=== PATIENT | male | born 1970 | race Caucasian/White ===

== ENCOUNTER 2024-02-13 08:00 | Outpatient (RCR) | payer MEDICARE, BC, SELFPAY ==
[2024-01-14 08:00] VITALS: BMI 39.8
[2024-01-14 08:29] VITALS: BMI 39.8
[2024-01-21 09:15] VITALS: BMI 39.8
[2024-01-23 11:01] VITALS: BMI 39.8
[2024-01-30 14:47] VITALS: BMI 38.0
[2024-02-04 13:43] VITALS: BMI 38.0
[2024-02-06 14:11] VITALS: BMI 38.0
[2024-02-13 08:04] VITALS: BMI 38.0
[2024-04-10 12:39] VITALS: BMI 38.0
== END 2024-04-10 13:07 | disposition home or self-care (01) ==
PROVIDERS: Visit Provider Family Medicine
DX: I89.0 Lymphedema, not elsewhere classified (principal); Z51.89 Encounter for other specified aftercare
CPT/HCPCS: 97140; 97166

== ENCOUNTER 2024-05-28 14:19 | Inpatient (IN) | payer MEDICARE, BC, SELFPAY ==
[2024-05-28 14:30] VITALS: BP 82/49; RESP 18; O2SAT 99; BMI 38.6
[2024-05-28 14:41] VITALS: O2SAT 99
--- NOTE | 2024-05-28 14:51 | P.IMHP_ITS ---
Hospitalist- H&P: HPI History of Present Illness Date Seen: 05/28/24 Chief complaint: direct admit Narrative: ADMISSION HISTORY AND PHYSICAL - HOSPITALIST Chief Complaint: belly pain, fever HPI: 53 y/o WM with hx of Down's Syndrome presents with acute abdominal pain, fever (101 this morning reported), vomiting (x 1 today) in the last two days. No diarrhea. No sick contacts. Appetite has been normal. Coworker described him as pale, weak two days ago. Yesterday seems to have gone better. But this morning: tired, fever, c/o of belly pain, vomited x 1. Hx of two prior surgeries; lap briana and pyloric stenosis. He went to clinic with his sisters and he was seen by Dr. Hong. CBC showed mild leukocytosis; CMP was not back. UA showed +bilirubin and protein. Dr. Hong also got a CT. Concern for a focal wall thickening in the ascending colon was noted. No acute appy or SBO. No acute liver findings. s/p lap briana. Pt was able to walk into the hospital and onto to the floor. ER COURSE: N/A clinic note reviewed CODE STATUS: FULL CODE EMERGENCY CONTACT PLAN: Amanda Hale Rel To Pat Sister I've updated the PFSH, medications and allergies in the Expanse tabs. INVESTIGATIONS: LABS/MICRO/ECG/IMAGING Clinic vital signs reveal blood pressure of 99/62. Pulse 77. He is afebrile. He is 5 ft 3-1/2 in. Weighs 223 lb. 101 kg. BMI 39. BP initially found to be 82/49 - asymptomatic (last three BP's in clinic 109/68, 90/47, 100/55) CBC this morning reveals a total white blood cell count 14.0, hemoglobin 14.3, platelet count 197. He has 2+ bilirubin in his urine this morning with trace protein. Otherwise negative for nitrite and leukocyte esterase. He does not have a CMP that is back as this is a clinic sent out. Previous CMP 3 months ago shows normal renal function, normal electrolytes, normal liver function. CT this morning in [facility] IMPRESSION: 1. No dilated loops of large or small intestine. No focal right lower quadrant inflammation. 2. Focal wall thickening of the ascending colon. Differential diagnosis includes incomplete distention or colonic mass/neoplasm. Follow-up colonoscopy recommended. 3. Prominent distention of the greater saphenous veins with some fat stranding surrounding varicose veins draining into the left greater saphenous vein. Poor central filling in the greater saphenous veins. Suggest bilateral lower extremity ultrasound to assess for superficial venous thrombosis at these levels. Specifically: Liver: Unremarkable. Normal in size and attenuation. No masses. Gallbladder and bile ducts: Status post cholecystectomy. Spleen: Unremarkable. Normal in size without mass. Pancreas: Unremarkable. No mass or inflammation. 02/15/2024 10:59 AM CDT? For the complete report, see the Order-Level Documents. Hemodynamics Heart Rate: 45 BPM Blood Pressure: 122 / 57 mmHg ECG: Sinus rhythm, 1st degree A-V block Final Impressions 1. Discrete subaortic ridge positioned 2 cm apical to the aortic valve annulus. Left ventricular outflow tract mean gradient 9 mmHg. Trivial aortic valve regurgitation. 2. Normal left ventricular chamber size with normal wall thickness. Calculated ejection fraction 61%. 3. Normal left ventricular diastolic function. 4. Normal right ventricular chamber size and systolic function. 5. Estimated right ventricular systolic pressure 41 mmHg (right atrial pressure of 5 mmHg). 6. Left ventricular stroke volume index 41 ml/m2. Reduced LV cardiac index (1.98 l/min/m2) due to ?sinus bradycardia. 7. Compared to the report of 01/28/2021 no significant change has occurred. Side by side comparison of images performed REVIEW OF SYSTEMS: 12-point ROS completed with patient and negative unless otherwise stated in HPI or below. PHYSICAL EXAM: CONSTITUTIONAL: seems happy, NAD. seems a little anxious and cries about his sister who two years ago; but otherwise is able to tell me basics about his life. A little challenging to understand. VITAL SIGNS: see record. HEENT: Normocephalic, atraumatic. PERRL, EOMI, conjunctivae pink, no scleral icterus. Ears and nose externally normal. Pharynx normal. NECK: No JVD. No carotid bruit, no thyromegaly, no adenopathy. CHEST: Clear to auscultation bilaterally HEART: S1 and S2 normal. 2/6 JULITA; 2+ chronic lymphedema MUSCULOSKELETAL: right sided discomfort to deep palpation. no rebound. good bowel sounds. NEURO: Cranial nerves intact. Grossly intact. No asymmetric findings. SKIN: No rashes, petechiae, concerning changes PSYCHIATRIC: Euthymic. [facility] F[facility] C[facility] DVT: ambulation, short stay. GI: N/A Time spent: Today I spent 75 minutes seeing the patient, discussing the patient with ER staff, reviewing Expanse and EPIC notes/diagnostics, discussing the care plan with our care time that includes social work, PT/OT, pharmacy, RT, nursing home and documenting my impressions and plan in the medical record. [facility] Medical History (Updated 05/28/24 @ 17:29 by Sandra Sanon MD) Congenital subaortic stenosis ?Q24.4 - Congenital subaortic stenosis (ICD-10) Varicose veins of bilateral lower extremities with other complications ?I83.893 - Varicose veins of bilateral lower extremities with other complications (ICD-10) Trisomy 21, Down syndrome ?Q90.9 - Down syndrome, unspecified (ICD-10) Hypothyroidism ?E03.9 - Hypothyroidism, unspecified (ICD-10) Primary osteoarthritis of right knee ?M17.11 - Unilateral primary osteoarthritis, right knee (ICD-10) Colonic mass ?K63.89 - Other specified diseases of intestine (ICD-10) Surgical History (Updated 05/28/24 @ 16:26 by Sandra Sanon MD) Status post sclerotherapy of varicose veins ?Z98.890 - Other specified postprocedural states (ICD-10) ?Z86.79 - Personal history of other diseases of the circulatory system (ICD-10) Status post laser ablation of incompetent vein ?Z98.890 - Other specified postprocedural states (ICD-10) History of repair of pyloric stenosis ?Z98.890 - Other specified postprocedural states (ICD-10) Hx of cholecystectomy ?Z90.49 - Acquired absence of other specified parts of digestive tract (ICD- 10) Family History (Updated 02/08/23 @ 13:36 by Sonya Cuevas ~ [facility], [facility]) Mother Colon cancer Sister Osteoarthritis Social History What is your current living situation?: I presently have a place to live Problems where you live: no known problems Problems where you live details: na In the past 12 months, utilities in danger of being shut off: no In past 12 months, lack of transportation kept you from medical appts, meetings, work, or getting things needed for daily living: no In the past 12 mos, have been you worried that your food would run out before you had money to buy more?: never true In the past 12 mos, the food you bought just didn't last and you didn't have money to buy more?: never true Highest level of school completed/degree received: high school graduate Smoking Status: Never smoker How often do you have a drink containing alcohol: never How often do you have six or more drinks on one occasion: Never AUDIT-C Alcohol total score: 0 Non-prescribed substance use: denies use Caffeine: Yes How often does anyone, including family, friends and others, physically hurt you : never How often does anyone, including family, friends and others, insult or talk down to you: never How often does anyone, including family, friends and others, threaten you with harm: never How often does anyone, including family, friends and others, scream or curse at you: never Meds Home Medications and Allergies Home Medications ?Medication ?Instructions ?Recorded ?Confirmed ?Type levothyroxine 150 mcg tablet 150 mcg PO DAILY 02/08/23 05/28/24 History ferrous sulfate 325 mg (65 mg 325 mg PO DAILY 05/28/24 05/28/24 History iron) tablet (Enma-Time) Allergies Allergy/AdvReac Type Severity Reaction Status Date / Time No Known Drug Allergies Allergy Verified 05/26/24 12:00 Assessment and Plan Assessment and plan (1) Colonic mass: Problem comment: biopsy needed via colonoscopy given imaging findings could represent colitis, malignancy, infection NOS inpatient stay for bowel prep and IV abx and further workup MiraLAX/Gatorade prep tonight Status: Acute (2) LFT elevation: Problem comment: marked elevation - acute (normal in 02/24) -adding acute hep panel, INR, ultrasound -mets? colitis? hepatitis (ascending cholangitis?) -RUQ u/s. CT reassuring. -getting CDIFF and stat GI PCR to [facility] tonight -fluid bolus; watch for sepsis; adding blood culture and Zosyn -trend labs -discuss timing/utility of colonoscopy with surgery in the AM Status: Acute (3) Hyperbilirubinemia: Problem comment: as above Status: Acute (4) Hypotension, chronic: Problem comment: runs low when well - SBP runs 90-105. Status: Acute (5) Hyponatremia: Problem comment: mild; acute illness; will follow Status: Acute (6) Trisomy 21, Down syndrome: Problem comment: -noted Status: Acute (7) Congenital subaortic stenosis: Problem comment: Mild, Followed by [facility] q 3 years 02/15/2024 10:59 AM CDT For the complete report, see the Order-Level Documents. Hemodynamics Heart Rate: 45 BPM Blood Pressure: 122 / 57 mmHg ECG: Sinus rhythm, 1st degree A-V block Final Impressions 1. Discrete subaortic ridge positioned 2 cm apical to the aortic valve annulus. Left ventricular outflow tract mean gradient 9 mmHg. Trivial aortic valve regurgitation. 2. Normal left ventricular chamber size with normal wall thickness. Calculated ejection fraction 61%. 3. Normal left ventricular diastolic function. 4. Normal right ventricular chamber size and systolic function. 5. Estimated right ventricular systolic pressure 41 mmHg (right atrial pressure of 5 mmHg). 6. Left ventricular stroke volume index 41 ml/m2. Reduced LV cardiac index (1.98 l/min/m2) due to sinus bradycardia. 7. Compared to the report of 01/28/2021 no significant change has occurred. Side by side comparison of images performed Status: Acute (8) Varicose veins of bilateral lower extremities with other complications: Problem comment: followed by [facility]; last procedure was 05/02/24 (ablation/sclerotherapy) Status: Acute (9) Hypothyroidism: Problem comment: -continue outpatient dose Status: Acute
[2024-05-28 15:19] LABS: Albumin* 4.1 g/dL (3.3-5.0); Chloride* 99 mmol/L (96-114); Sodium* 131 mmol/L (135-149)
[2024-05-28 15:20] LABS: Potassium* 4.1 mmol/L (3.6-5.1)
[2024-05-28 15:23] LABS: Alanine Aminotransferase* 741 U/L (4-50); Alkaline Phosphatase* 399 U/L (40-150); Anion Gap 7 mEq/L (7-15); Aspartate Amino Transferase* 576 U/L (12-35); Bilirubin Total* 4.4 mg/dL (0.1-1.5); Blood Urea Nitrogen* 28 mg/dL (7-30); Calcium* 8.7 mg/dL (8.4-10.6); Carbon Dioxide* 25 mmol/L (20-32); Creatinine* 1.1 mg/dL (0.5-1.5); Estimated Glomerular Filt Rate 81 ml/min; Glucose* 102 mg/dL (60-115); Total Protein* 7.4 g/dL (6.0-8.3)
[2024-05-28 15:26] LABS: C Reactive Protein* 7.7 mg/dL (0.5-1.0)
[2024-05-28] MEDS: 5 % DEX/0.9 SOD CHL+KCL 20 mEq 1,000 ML 125 ML IV (16:05)
[2024-05-28] MEDS: bisacodyL 10 MG SUPP.RECT PR (16:05)
[2024-05-28 17:05] LABS: INR 1.19 (0.91-1.10); Prothrombin Time 15.9 Seconds
[2024-05-28 17:17] LABS: Gamma Glutamyl Transpeptidase* 600 U/L (8-55)
[2024-05-28 17:34] LABS: Procalcitonin* 9.69 ng/mL (<0.50)
[2024-05-28 17:40] LABS: HCO3 VBG 26 mmol/L (21-28); PCO2 VBG 45 mmHG (40-50); PO2 VBG < 30.1 mmHG (25-47); pH VBG 7.374 (7.32-7.43)
[2024-05-28 17:43] LABS: Lactate* 2.1 mmol/L (0.5-1.9)
[2024-05-28] MEDS: PIPERACILLIN/TAZOBACTAM 3.375 GM in 0.9 % SODIUM CHLORIDE Mini-bag 100 ML IVPB ×2 (17:56→22:47)
[2024-05-28] MEDS: polyethylene glycoL 238 GM BULK BOTTLE PO (17:58)
[2024-05-28 17:59] LABS: Hemoglobin A1C* 5.4 % (0-5.6)
[2024-05-28 18:11] LABS: Lipase* 219 U/L (23-300)
[2024-05-28 18:33] VITALS: O2SAT 99
[2024-05-28] MEDS: LACTATED RINGERS 1000 ML 1,000 ML 500 ML IV (19:12)
--- NOTE | 2024-05-28 19:44 | PC.NURSE ---
Pt is pleasant, alert, oriented and vitally stable. Arrived to us via direct admit around 1430 this afternoon. Pt has down syndrome and some slurred speech at baseline. Can have some trouble communicating his pain, pt family states that pt has a high pain tolerance. Pt does present with facial grimace at times (especially with movement) and can state ?hurt.? No pain medication given now, pt seems to be tolerating well. IV in left hand, intact. Up via standby and tolerates well.
[2024-05-28 20:00] VITALS: BP 103/49; PULSE 61; RESP 18; TEMP 38.3; O2SAT 96
[2024-05-28] MEDS: ACETAMINOPHEN 325 MG TABLET PO (21:59)
[2024-05-28 23:00] VITALS: BP 87/52; PULSE 55; RESP 12; TEMP 36.3; O2SAT 91; O2SAT 98
[2024-05-28 23:52] LABS: CDIFFEPI 027 PRESUMPTIVE NEGATIVE (Negative)
[2024-05-28 23:53] LABS: C.Difficile Negative (Negative)
[2024-05-29] VITALS (17 sets, daily range): BP systolic 98–153; BP diastolic 47–99; PULSE 54–63; RESP 14–24; TEMP 36.1–38.3; O2SAT 96–100
[2024-05-29] MEDS: 5 % DEX/0.9 SOD CHL+KCL 20 mEq 1,000 ML 125 ML IV ×4 (02:21→20:48)
[2024-05-29] MEDS: PIPERACILLIN/TAZOBACTAM 3.375 GM in 0.9 % SODIUM CHLORIDE Mini-bag 100 ML IVPB ×4 (04:35→22:20)
--- NOTE | 2024-05-29 04:57 | PC.NURSE ---
[id number] Pt slept well during the night, up to br x1, SBA, tolerated activity well. appeared comfortable throughout night.
[2024-05-29 06:21] LABS: HCO3 VBG 27 mmol/L (21-28); Ionized Calcium* 1.08 mmol/L (1.11-1.30); PCO2 VBG 48 mmHG (40-50); PO2 VBG 31.8 mmHG (25-47)
[2024-05-29 06:29] LABS: Basophils Absolute Auto 0.02 K/uL (0.00-0.30); Basophils Percent Auto 0.2 % (0.0-3.0); Eosinophils Absolute Auto 0.12 K/uL (0.00-0.50); Eosinophils Percent Auto 1.3 % (0.0-7.0); Hematocrit 36.1 % (37.0-53.0); Hemoglobin* 11.5 gm/dL (13.5-17.5); Immature Granulocytes Abs Auto 0.02 K/uL (0.00-0.30); Immature Granulocytes Pct Auto 0.2 %; Immature Reticulocyte Fraction 21.6 % (2.3-13.4); Lymphocytes Percent Auto 2.7 % (20-44); Mean Corpuscular HGB Conc 32 gm/dL (32-36); Mean Corpuscular Hemoglobin 31 pg (26-34); Mean Corpuscular Volume 98 fL (80-100); Monocytes Percent Auto 8.3 % (0.0-11.0); Neutrophils Percent Auto 87.3 % (42.0-72.0); Platelet Count* 142 K/uL (140-440); RDW Coefficient of Variation % 15.8 % (11.5-15.5); Red Blood Count 3.68 m/uL (4.30-5.90); Reticulocyte Hemoglobin Equivi 29.7 pg (29.0-35.0); Reticulocytes Absolute 0.07 # (0.03-0.08)
[2024-05-29 06:31] LABS: Slide Review Reflex No
[2024-05-29 06:57] LABS: Iron* 34 ug/dL (49-181)
[2024-05-29 06:58] LABS: Albumin* 3.3 g/dL (3.3-5.0); Chloride* 108 mmol/L (96-114); Sodium* 137 mmol/L (135-149)
[2024-05-29 06:59] LABS: Potassium* 3.8 mmol/L (3.6-5.1)
[2024-05-29 07:00] LABS: Creatinine* 0.8 mg/dL (0.5-1.5); Est. Creatinine Clearance* 91.47; Estimated Glomerular Filt Rate 107 ml/min
[2024-05-29 07:01] LABS: Alkaline Phosphatase* 314 U/L (40-150); Anion Gap 2 mEq/L (7-15); Aspartate Amino Transferase* 245 U/L (12-35); Bilirubin Direct* 3.8 mg/dL (0.0-0.5); Bilirubin Total* 4.8 mg/dL (0.1-1.5); Blood Urea Nitrogen* 17 mg/dL (7-30); Carbon Dioxide* 27 mmol/L (20-32); Total Protein* 6.4 g/dL (6.0-8.3)
[2024-05-29 07:02] LABS: Alanine Aminotransferase* 486 U/L (4-50); Calcium* 8.1 mg/dL (8.4-10.6); Cholesterol* 135 mg/dL (90-199); Gamma Glutamyl Transpeptidase* 466 U/L (8-55); Glucose* 115 mg/dL (60-115); HDL Cholesterol* 37 mg/dL (>=40); LDL Cholesterol Calculated 86 mg/dL (<100); Lipase* 146 U/L (23-300); Phosphorus* 2.8 mg/dL (2.5-4.5); Triglycerides* 61 mg/dL (40-149)
[2024-05-29 07:06] LABS: Percent Iron Saturation 16 % (20-50); Total Iron Binding Capacity 217 ug/dL (261-462)
[2024-05-29 07:14] LABS: Procalcitonin* 5.79 ng/mL (<0.50)
--- NOTE | 2024-05-29 07:29 | CRLHL7_ITS ---
For Patients: As a result of the Century Cures Act, medical imaging exams and procedure reports are released immediately into your electronic medical record. You may view this report before your referring provider. If you have questions, please contact your health care provider. INDICATION: Right upper quadrant pain TECHNIQUE: 1.5 T MRI of the abdomen was performed with T1 weighted imaging; T2 weighted imaging; in and out of phase imaging: MRCP images. No intravenous contrast was administered. COMPARISON: None FINDINGS: Lungs: The lung bases are clear. No pleural or pericardial effusion. Liver: Homogeneous liver parenchyma. No hepatic masses. No hepatic steatosis. Biliary tree and gallbladder: No intrahepatic biliary dilation. Minimally dilated extrahepatic bile duct measuring up to 0.7 cm with truncated appearance measuring 2.2 cm in craniocaudal extent. This may be postprocedural and related to prior duodenojejunostomy. Prior cholecystectomy Spleen: Unremarkable Pancreas: Normal pancreatic parenchyma. No pancreatic masses. No pancreatic duct dilation. Adrenal glands: Unremarkable. Kidneys and ureters: No renal masses or hydronephrosis. GI tract: Prior duodenojejunostomy. No evidence of obstruction or inflammation. Vasculature: The IVC and aorta are patent. No abdominal aortic aneurysm. Lymph nodes: No lymphadenopathy. Abdominal wall: Unremarkable Bones: Degenerative change of the imaged spine. IMPRESSION: 1. Prior cholecystectomy with minimally dilated extrahepatic bile duct measuring up to 0.7 cm, which may be secondary to reservoir effect. The extrahepatic bile duct has a truncated appearance, presumably related to prior duodenojejunostomy. Prior imaging would be helpful for comparison to assess stability if available. Please correlate with LFTs. 2. No hepatic abnormality is appreciated on this noncontrast exam. Dictated by Susan Perera MD @ 05/29/2024 1:50:15 PM (Electronically Signed)
[2024-05-29 07:55] LABS: C Reactive Protein* 16.8 mg/dL (0.5-1.0)
--- NOTE | 2024-05-29 09:03 | P.IMPN_ITS ---
Progress Note: A&P Assessment and plan (1) Colonic mass: Problem details: - will need colonscopy; not acutely prepping at this time given illness Status: Acute (2) LFT elevation: Problem details: - marked elevation - acute (normal in 02/24) with elevated INR. Negative Monospot, B CX NGTD - pending: Hepatitis panel, stool studies, CMV - reassuring MRCP 05/29 - reviewed with ID 05/29: continue Zosyn, add on CMV and COVID, continue to trend LFTs Status: Acute (3) Hypotension, chronic: Problem details: - typical SBP 90-100 Status: Acute (4) Hyponatremia: Problem details: - normalized 05/29 Status: Acute (5) Trisomy 21, Down syndrome: Problem details: - noted Status: Acute (6) Congenital subaortic stenosis: Problem details: Mild, Followed by [facility] q 3 years 02/15/2024 10:59 AM CDT For the complete report, see the Order-Level Documents. Hemodynamics Heart Rate: 45 BPM Blood Pressure: 122 / 57 mmHg ECG: Sinus rhythm, 1st degree A-V block Final Impressions 1. Discrete subaortic ridge positioned 2 cm apical to the aortic valve annulus. Left ventricular outflow tract mean gradient 9 mmHg. Trivial aortic valve regurgitation. 2. Normal left ventricular chamber size with normal wall thickness. Calculated ejection fraction 61%. 3. Normal left ventricular diastolic function. 4. Normal right ventricular chamber size and systolic function. 5. Estimated right ventricular systolic pressure 41 mmHg (right atrial pressure of 5 mmHg). 6. Left ventricular stroke volume index 41 ml/m2. Reduced LV cardiac index (1.98 l/min/m2) due to sinus bradycardia. 7. Compared to the report of 01/28/2021 no significant change has occurred. 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: Problem details: - followed by [facility]; last procedure was 05/02/24 (ablation/sclerotherapy) Status: Acute (8) Hypothyroidism: Problem details: - stable TSH, continue outpatient dose of Levothyroxine Status: Acute Plan - per above - sisters updated at bedside, questions answered Subjective Date Seen: 05/29/24 Interval history: Malik was direct admitted to the hospital from the clinic yesterday for abdominal pain, abnormal CT, and fever. His CT findings: 1. No dilated loops of large or small intestine. No focal right lower quadrant inflammation. 2. Focal wall thickening of the ascending colon. Differential diagnosis includes incomplete distention or colonic mass/neoplasm. Follow-up colonoscopy recommended. 3. Prominent distention of the greater saphenous veins with some fat stranding surrounding varicose veins draining into the left greater saphenous vein. Poor central filling in the greater saphenous veins. Suggest bilateral lower extremity ultrasound to assess for superficial venous thrombosis at these levels. Labs revealed elevated LFTs, normal WBC. Monospot negative. MRCP negative for acute findings. CBC reassuring. Pending: Hepatitis panel Stool studies Blood culture (NGTD) Exam Narrative: Exam Narrative: GEN: Alert and sitting comfortably in bedside chair, agreeable HEENT: Normal external ears, EOMIs bilaterally, + scleral icterus CV: RRR, blowing systolic murmur heard R: LCTA bilaterally without concerning wheezing, rales, or rhonchi Ext: wwp, no concerning edema Skin: No concerning skin lesions or rashes on exposed skin Neuro: Nonfocal Psych: Appropriate Const: Vital Signs, click to edit/add: Vital Signs - 24 hr 05/28/24 14:30 05/28/24 14:30 05/28/24 14:41 Temperature Pulse Rate [Pulse Oximeter] Respiratory Rate 18 18 Blood Pressure [Le ft Arm] 82/49 L Pulse Oximetry 99 99 99 Oxygen Delivery Me thod Room Air Room Air Room Air 05/28/24 18:33 05/28/24 20:00 05/28/24 23:00 Temperature 100.9 F H Pulse Rate [Pulse Oximeter] 61 Respiratory Rate 18 Blood Pressure [Le ft Arm] 103/49 L Pulse Oximetry 99 96 91 Oxygen Delivery Ne thod Room Air 05/28/24 23:00 05/29/24 02:23 05/29/24 08:45 Temperature 97.4 F L Pulse Rate [Pulse Oximeter] 55 L 54 L Respiratory Rate 12 14 Blood Pressure [Le ft Arm] 87/52 L 98/51 L Pulse Oximetry 98 97 98 Oxygen Delivery Ne thod Room Air Room Air 05/29/24 08:45 Temperature 97.0 F L Pulse Rate [Pulse Oximeter] 63 Respiratory Rate 18 Blood Pressure [Le ft Arm] 108/56 L Pulse Oximetry 98 Oxygen Delivery Ne thod Room Air Labs Labs: Laboratory Results - last 24 hr 05/28/24 05/28/24 05/28/24 14:45 14:55 16:38 WBC RBC Hgb Hct MCV MCH MCHC RDW Coeff of Lisy Plt Count Neut % (Auto) Lymph % (Auto) Barnwell % (Auto) Eos % (Auto) Baso % (Auto) Neut # (Auto) Lymph # (Auto) Barnwell # (Auto) Eos # (Auto) Baso # (Auto) Abs Immat Gran (auto) Imm/Tot Granulo (auto) Absolute Retic Percent Retic Immature Retic Fraction Retic Hgb Equivalent INR 1.19 H VBG pH VBG pCO2 VBG pO2 VBG HCO3 Sodium 131 L Potassium 4.1 Chloride 99 Carbon Dioxide 25 Anion Gap 7 BUN 28 Creatinine 1.1 Estimated Creat Clear Estimated GFR 81 Glucose 102 Hemoglobin A1c 5.4 Lactate Calcium 8.7 Ionized Calcium Manoj Phosphorus Iron TIBC % Saturation Ferritin Total Bilirubin 4.4 H Direct Bilirubin GGT 600 H AST 576 H ALT 741 H Alkaline Phosphatase 399 H C-Reactive Protein 7.7 H Total Protein 7.4 Albumin 4.1 Triglycerides Cholesterol LDL Cholesterol, Calc HDL Cholesterol Lipase 219 Procalcitonin 9.69 H TSH 1.380 Stl C. diff Tox B Gene Stl C. diff [id number]-[id number] Lab Acknowledgement Test Added 05/28/24 05/28/24 05/28/24 16:52 17:35 17:40 WBC RBC Hgb Hct MCV MCH MCHC RDW Coeff of Lisy Plt Count Neut % (Auto) Lymph % (Auto) Barnwell % (Auto) Eos % (Auto) Baso % (Auto) Neut # (Auto) Lymph # (Auto) Barnwell # (Auto) Eos # (Auto) Baso # (Auto) Abs Immat Gran (auto) Imm/Tot Granulo (auto) Absolute Retic Percent Retic Immature Retic Fraction Retic Hgb Equivalent INR VBG pH 7.374 VBG pCO2 45 VBG pO2 < 30.1 VBG HCO3 26 Sodium Potassium Chloride Carbon Dioxide Anion Gap BUN Creatinine Estimated Creat Clear Estimated GFR Glucose Hemoglobin A1c Lactate 2.1 H Calcium Ionized Calcium Manoj Phosphorus Iron TIBC % Saturation Ferritin Total Bilirubin Direct Bilirubin GGT AST ALT Alkaline Phosphatase C-Reactive Protein Total Protein Albumin Triglycerides Cholesterol LDL Cholesterol, Calc HDL Cholesterol Lipase Procalcitonin TSH Stl C. diff Tox B Gene Stl C. diff [id number] Lab Acknowledgement Test Added Test Added 05/28/24 05/29/24 Unknown 05:42 WBC 9.00 RBC 3.68 L Hgb 11.5 L Hct 36.1 L MCV 98 MCH 31 MCHC 32 RDW Coeff of Lisy 15.8 H Plt Count 142 Neut % (Auto) 87.3 H Lymph % (Auto) 2.7 L Barnwell % (Auto) 8.3 Eos % (Auto) 1.3 Baso % (Auto) 0.2 Neut # (Auto) 7.90 H Lymph # (Auto) 0.20 L Barnwell # (Auto) 0.70 Eos # (Auto) 0.12 Baso # (Auto) 0.02 Abs Immat Gran (auto) 0.02 Imm/Tot Granulo (auto) 0.2 Absolute Retic 0.07 Percent Retic 2.0 Immature Retic Fraction 21.6 H Retic Hgb Equivalent 29.7 INR VBG pH 7.360 VBG pCO2 48 VBG pO2 31.8 VBG HCO3 27 Sodium 137 Potassium 3.8 Chloride 108 Carbon Dioxide 27 Anion Gap 2 L BUN 17 Creatinine 0.8 Estimated Creat Clear 91.47 Estimated GFR 107 Glucose 115 Hemoglobin A1c Lactate 1.0 Calcium 8.1 L Ionized Calcium Manoj 1.08 L Phosphorus 2.8 Iron 34 L TIBC 217 L % Saturation 16 L Ferritin 1070.0 H Total Bilirubin 4.8 H Direct Bilirubin 3.8 H GGT 466 H AST 245 H ALT 486 H Alkaline Phosphatase 314 H C-Reactive Protein 16.8 H Total Protein 6.4 Albumin 3.3 Triglycerides 61 Cholesterol 135 LDL Cholesterol, Calc 86 HDL Cholesterol 37 L Lipase 146 Procalcitonin 5.79 H TSH Stl C. diff Tox B Gene Negative Stl C. diff -[id number]-[id number] PRESUMPTIVE NEGATIVE Lab Acknowledgement
[2024-05-29] MEDS: ACETAMINOPHEN 325 MG TABLET PO ×2 (12:00→19:10)
[2024-05-29 12:22] LABS: Mono Screen* Negative (Negative)
[2024-05-29 16:43] LABS: SARS Antigen* Negative (Negative)
--- NOTE | 2024-05-29 19:53 | PC.NURSE ---
Pt is pleasant, alert, oriented and vitally stable. Pt has had a fever present throughout the shift, presenting symptoms of being pt getting emotional and tremors, Tylenol administered fever resolved.?Pt has down syndrome and some slurred speech at baseline. Can have some trouble communicating his pain, pt family states that pt has a high pain tolerance. Pt does present with facial grimace at times (especially with movement) and can state ?hurt.? Pt was passing stools with traces of salima blood, MD aware and accessed. IV in left hand, intact. Up via standby and tolerates well.
[2024-05-30 03:30] VITALS: BP 101/58; PULSE 58; RESP 20; TEMP 37.1; O2SAT 99
[2024-05-30] MEDS: 5 % DEX/0.9 SOD CHL+KCL 20 mEq 1,000 ML 125 ML IV ×2 (04:59→16:09)
[2024-05-30] MEDS: PIPERACILLIN/TAZOBACTAM 3.375 GM in 0.9 % SODIUM CHLORIDE Mini-bag 100 ML IVPB ×4 (04:59→22:51)
[2024-05-30] MEDS: ACETAMINOPHEN 325 MG TABLET PO (05:54)
[2024-05-30] MEDS: LEVOTHYROXINE 75 MCG TABLET 150 MCG PO (05:54)
--- NOTE | 2024-05-30 06:29 | PC.NURSE ---
: pleasant and cooperative. Calls appropriately. SBA w/?IV pole. VSS. AFebrile.?Pt appears slightly jaundice. 1x smear BM, bright red blood clots noted in toilet.
[2024-05-30 06:54] LABS: Basophils Absolute Auto 0.02 K/uL (0.00-0.30); Basophils Percent Auto 0.4 % (0.0-3.0); Eosinophils Absolute Auto 0.06 K/uL (0.00-0.50); Eosinophils Percent Auto 1.1 % (0.0-7.0); Hematocrit 34.7 % (37.0-53.0); Hemoglobin* 10.9 gm/dL (13.5-17.5); Immature Granulocytes Abs Auto 0.01 K/uL (0.00-0.30); Immature Granulocytes Pct Auto 0.2 %; Lymphocytes Percent Auto 5.2 % (20-44); Mean Corpuscular HGB Conc 31 gm/dL (32-36); Mean Corpuscular Hemoglobin 31 pg (26-34); Mean Corpuscular Volume 98 fL (80-100); Monocytes Percent Auto 10.1 % (0.0-11.0); Platelet Count* 134 K/uL (140-440); RDW Coefficient of Variation % 15.7 % (11.5-15.5); Red Blood Count 3.53 m/uL (4.30-5.90); White Blood Count* 5.54 K/uL (4.50-11.00)
[2024-05-30 06:55] LABS: Slide Review Reflex No
[2024-05-30 07:04] LABS: INR 1.27 (0.91-1.10); Prothrombin Time 16.7 Seconds
[2024-05-30 07:22] LABS: Chloride* 110 mmol/L (96-114); Sodium* 137 mmol/L (135-149)
[2024-05-30 07:23] LABS: Albumin* 2.8 g/dL (3.3-5.0)
[2024-05-30 07:25] LABS: Anion Gap 5 mEq/L (7-15); Blood Urea Nitrogen* 8 mg/dL (7-30); Carbon Dioxide* 22 mmol/L (20-32); Creatinine* 0.6 mg/dL (0.5-1.5); Est. Creatinine Clearance* 121.96; Estimated Glomerular Filt Rate 117 ml/min; Gamma Glutamyl Transpeptidase* 489 U/L (8-55)
[2024-05-30 07:26] LABS: Alkaline Phosphatase* 353 U/L (40-150); Aspartate Amino Transferase* 107 U/L (12-35); Bilirubin Direct* 2.9 mg/dL (0.0-0.5); Bilirubin Total* 3.5 mg/dL (0.1-1.5); Glucose* 101 mg/dL (60-115); Magnesium* 2.2 mg/dL (1.5-2.6); Total Protein* 5.7 g/dL (6.0-8.3)
[2024-05-30 07:27] LABS: Alanine Aminotransferase* 298 U/L (4-50)
[2024-05-30 07:30] VITALS: BP 110/60; PULSE 47; RESP 18; TEMP 36.4; O2SAT 98
[2024-05-30] MEDS: CALCIUM GLUC 1,000MG/50 ML 1,000 MG/50 ML BAG 100 MG IVPB (09:12)
[2024-05-30 11:00] VITALS: BP 96/60; PULSE 41; RESP 18; TEMP 36.6; O2SAT 98
--- NOTE | 2024-05-30 12:36 | P.IMPN_ITS ---
Progress Note: A&P Assessment and plan (1) Colonic mass: Problem details: - vs incomplete distention on clinic imaging 05/28 - will need outpatient colonoscopy; not acutely prepping at this time given illness Status: Acute (2) LFT elevation: Problem details: - marked elevation (notably normal in February 2024) - acute with elevated INR. Negative Monospot, B CX NGTD - pending: Hepatitis panel, stool studies, CMV - 05/29: reassuring MRCP. Reviewed with ID: c/w viral illness. While awaiting lab results: continue Zosyn, add on CMV and COVID, continue to trend LFTs - 05/30: continuing to improve, adding TTE to evaluate R heart Status: Acute (3) Normocytic anemia: Problem details: - chronic, baseline Hgb 11-12 - takes thrice weekly slow iron as an outpatient (PCP is Dr. Bailey) Status: Acute (4) Hypotension, chronic: Problem details: - typical SBP 90-100 Status: Acute (5) Trisomy 21, Down syndrome: Problem details: - noted Status: Acute (6) Congenital subaortic stenosis: Problem details: - Mild, Followed by [place] [facility] q 3 years 02/15/2024 10:59 AM CDT For the complete report, see the Order-Level Documents. Hemodynamics Heart Rate: 45 BPM Blood Pressure: 122 / 57 mmHg ECG: Sinus rhythm, 1st degree A-V block Final Impressions 1. Discrete subaortic ridge positioned 2 cm apical to the aortic valve annulus. Left ventricular outflow tract mean gradient 9 mmHg. Trivial aortic valve regurgitation. 2. Normal left ventricular chamber size with normal wall thickness. Calculated ejection fraction 61%. 3. Normal left ventricular diastolic function. 4. Normal right ventricular chamber size and systolic function. 5. Estimated right ventricular systolic pressure 41 mmHg (right atrial pressure of 5 mmHg). 6. Left ventricular stroke volume index 41 ml/m2. Reduced LV cardiac index (1.98 l/min/m2) due to sinus bradycardia. 7. Compared to the report of 01/28/2021 no significant change has occurred. 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: Problem details: - followed by [place]; last procedure was 05/02/24 (ablation/sclerotherapy) Status: Acute (8) Hypothyroidism: Problem details: - stable TSH, continue outpatient dose of Levothyroxine Status: Acute Plan - TTE today, continue to await lab results - d/c home with sisters when afebrile x24 hours and continual improvement in LFTs (ideally would have pending lab results as well) - sisters updated at bedside, questions answered Subjective Date Seen: 05/30/24 Interval history: Malik was direct admitted to the hospital from the clinic yesterday for abdominal pain, abnormal CT, and fever. Upon arrival to hospital, noted to have significant elevation in LFTs, normal WBC. CT findings from clinic: 1. No dilated loops of large or small intestine. No focal right lower quadrant inflammation. 2. Focal wall thickening of the ascending colon. Differential diagnosis includes incomplete distention or colonic mass/neoplasm. Follow-up colonoscopy recommended. 3. Prominent distention of the greater saphenous veins with some fat stranding surrounding varicose veins draining into the left greater saphenous vein. Poor central filling in the greater saphenous veins. Suggest bilateral lower extremity ultrasound to assess for superficial venous thrombosis at these levels. On Zosyn empirically. Monospot negative. MRCP negative for acute findings. CBC reassuring, negative COVID. Pending: CMV Hepatitis panel Stool studies Blood culture (NGTD) Tmax 100.9 (last night). LFTs trending downward. Noted to be more bradycardic than previous (outpatient baseline HR 60s), no dizziness or lightheadedness. EKG reveals sinus bradycardia and 1st degree AV block. Exam Narrative: Exam Narrative: GEN: Alert and nontoxic, interactive HEENT: Normal external ears, EOMIs bilaterally, no scleral icterus CV: Bradycardia (HR in the 40s), + blowing systolic murmur without radiation R: LCTA bilaterally without concerning wheezing, rales, or rhonchi Ab: soft and nontender Ext: 2-3+ pitting edema, baseline. + hyperpigmented changes. Known PVD, sees Vascular surgery at [place] for varicosities Skin: No other concerning skin lesions or rashes on exposed skin Neuro: No focal deficits or resting tremor Psych: Appropriate Const: Vital Signs, click to edit/add: Vital Signs - 24 hr 05/29/24 13:18 05/29/24 14:43 05/29/24 14:57 Temperature 99.8 F H 98.8 F Pulse Rate [Pulse Oximeter] Respiratory Rate Blood Pressure [Le ft Arm] Blood Pressure [Ri ght Arm] Pulse Oximetry 98 Oxygen Delivery Me thod 05/29/24 15:00 05/29/24 17:11 05/29/24 18:55 Temperature 98.1 F 100.9 F H Pulse Rate [Pulse Oximeter] 63 63 Respiratory Rate 18 18 Blood Pressure [Le ft Arm] 153/99 H Blood Pressure [Ri ght Arm] Pulse Oximetry 100 Oxygen Delivery Me thod Room Air 05/29/24 19:10 05/29/24 19:30 05/29/24 19:49 Temperature 100.9 F H 99.2 F 99.2 F Pulse Rate [Pulse Oximeter] 63 Respiratory Rate 18 Blood Pressure [Le ft Arm] Blood Pressure [Ri ght Arm] 106/51 L Pulse Oximetry 98 Oxygen Delivery Me thod Room Air 05/29/24 22:24 05/29/24 23:00 05/29/24 23:00 Temperature 98.6 F Pulse Rate [Pulse Oximeter] 57 L Respiratory Rate 24 24 Blood Pressure [Le ft Arm] Blood Pressure [Ri ght Arm] 105/47 L Pulse Oximetry 96 96 Oxygen Delivery Me thod Room Air 05/30/24 03:30 05/30/24 07:30 05/30/24 07:30 Temperature 98.7 F Pulse Rate [Pulse Oximeter] 58 L 47 L Respiratory Rate 20 18 Blood Pressure [Le ft Arm] Blood Pressure [Ri ght Arm] 101/58 L Pulse Oximetry 99 98 Oxygen Delivery Me thod Room Air 05/30/24 07:30 05/30/24 11:00 Temperature 97.6 F 97.9 F Pulse Rate [Pulse Oximeter] 47 L 41 L Respiratory Rate 18 18 Blood Pressure [Le ft Arm] Blood Pressure [Ri ght Arm] 110/60 96/60 Pulse Oximetry 98 98 Oxygen Delivery Me thod Room Air Room Air Labs Labs: Laboratory Results - last 24 hr 05/29/24 05/30/24 15:10 05:51 WBC 5.54 RBC 3.53 L Hgb 10.9 L Hct 34.7 L MCV 98 MCH 31 MCHC 31 L RDW Coeff of Lisy 15.7 H Plt Count 134 L Neut % (Auto) 83.0 H Lymph % (Auto) 5.2 L [place] % (Auto) 10.1 Eos % (Auto) 1.1 Baso % (Auto) 0.4 Neut # (Auto) 4.60 Lymph # (Auto) 0.30 L [place] # (Auto) 0.60 Eos # (Auto) 0.06 Baso # (Auto) 0.02 Abs Immat Gran (auto) 0.01 Imm/Tot Granulo (auto) 0.2 INR 1.27 H Sodium 137 Potassium 4.0 Chloride 110 Carbon Dioxide 22 Anion Gap 5 L BUN 8 Creatinine 0.6 Estimated Creat Clear 121.96 Estimated GFR 117 Glucose 101 Calcium 8.0 L Ionized Calcium Manoj 1.10 L Magnesium 2.2 Total Bilirubin 3.5 H Direct Bilirubin 2.9 H GGT 489 H AST 107 H ALT 298 H Alkaline Phosphatase 353 H Total Protein 5.7 L Albumin 2.8 L SARS-CoV-2 Ag (Rapid) Negative
--- NOTE | 2024-05-30 14:31 | PC.NURSE ---
end of shift. Pt has been very pleasant. he is alert and orientated. minimal pain pt. Per pts family. pt has symptoms of getting emotional and tremors. when he has a fever. pt is eating, drinking and voiding. Pt has had a stool with traces of salima blood, MD aware. SL, left hand, intact. he is up with SBA> he is very kind and friendly.
[2024-05-30 15:00] VITALS: O2SAT 96
[2024-05-30] MEDS: PERFLUTREN LIPID MICROSPHERES 2 ML VIAL IV (15:07)
[2024-05-30 16:02] VITALS: BP 103/92; PULSE 46; RESP 18; TEMP 36.6; O2SAT 96
[2024-05-30 18:46] LABS: Hep A Ab, IgM Negative (Negative); Hep B Core Ab, IgM Negative (Negative); Hep B Surface Antigen Negative (Negative); Hep C Ab by CIA Index 0.19 IV; Hep C Ab by CIA Interp Negative (Negative)
[2024-05-30 19:00] VITALS: BP 113/57; PULSE 57; RESP 16; TEMP 37.4; O2SAT 98
[2024-05-30] MEDS: SODIUM CHLORIDE 0.9 % (FLUSH) 10 ML SYRINGE 5 ML IVF (22:28)
[2024-05-31] VITALS (9 sets, daily range): BP systolic 100–122; BP diastolic 52–89; PULSE 41–60; RESP 18–20; TEMP 36.6–37.1; O2SAT 95–100
[2024-05-31] MEDS: 5 % DEX/0.9 SOD CHL+KCL 20 mEq 1,000 ML 125 ML IV ×2 (00:55→11:13)
[2024-05-31] MEDS: ACETAMINOPHEN 325 MG TABLET PO (00:57)
[2024-05-31] MEDS: PIPERACILLIN/TAZOBACTAM 3.375 GM in 0.9 % SODIUM CHLORIDE Mini-bag 100 ML IVPB ×3 (05:03→18:42)
--- NOTE | 2024-05-31 05:24 | PC.NURSE ---
[id number]: Patient with Down syndrome is pleasant and cooperative. Afebrile. Denies pain. SBA w/ IV pole. Denies N/V. Eating and voiding.
[2024-05-31] MEDS: LEVOTHYROXINE 75 MCG TABLET 150 MCG PO (05:55)
[2024-05-31 06:33] LABS: Basophils Percent Auto 0.9 % (0.0-3.0); Eosinophils Percent Auto 1.4 % (0.0-7.0); Hematocrit 35.2 % (37.0-53.0); Immature Granulocytes Pct Auto 0.2 %; Lymphocytes Percent Auto 12.6 % (20-44); Mean Corpuscular HGB Conc 31 gm/dL (32-36); Mean Corpuscular Hemoglobin 31 pg (26-34); Mean Corpuscular Volume 98 fL (80-100); Monocytes Percent Auto 10.8 % (0.0-11.0); Neutrophils Percent Auto 74.1 % (42.0-72.0); Platelet Count* 149 K/uL (140-440); RDW Coefficient of Variation % 15.8 % (11.5-15.5); White Blood Count* 4.43 K/uL (4.50-11.00)
[2024-05-31 06:52] LABS: Slide Review Reflex No
[2024-05-31 06:56] LABS: Albumin* 3.4 g/dL (3.3-5.0)
[2024-05-31 06:57] LABS: Chloride* 106 mmol/L (96-114); INR 1.04 (0.91-1.10); Potassium* 4.1 mmol/L (3.6-5.1); Prothrombin Time 14.3 Seconds; Sodium* 138 mmol/L (135-149)
[2024-05-31 06:59] LABS: Alkaline Phosphatase* 450 U/L (40-150); Anion Gap 8 mEq/L (7-15); Aspartate Amino Transferase* 73 U/L (12-35); Bilirubin Total* 2.5 mg/dL (0.1-1.5); Blood Urea Nitrogen* 9 mg/dL (7-30); Carbon Dioxide* 24 mmol/L (20-32); Creatinine* 0.7 mg/dL (0.5-1.5); Est. Creatinine Clearance* 104.54; Estimated Glomerular Filt Rate 112 ml/min
[2024-05-31 07:00] LABS: Alanine Aminotransferase* 250 U/L (4-50); Calcium* 8.5 mg/dL (8.4-10.6); Gamma Glutamyl Transpeptidase* 618 U/L (8-55); Glucose* 89 mg/dL (60-115)
--- NOTE | 2024-05-31 09:20 | P.IMPN_ITS ---
Progress Note: A&P Assessment and plan (1) LFT elevation: Problem details: - marked elevation (notably normal in February 2024) - acute with elevated INR. Negative Monospot, B CX NGTD - pending: Hepatitis panel, stool studies, CMV - 05/29: reassuring MRCP. Reviewed with ID: c/w viral illness. While awaiting lab results: continue Zosyn, add on CMV and COVID, continue to trend LFTs - 05/30: continuing to improve, adding TTE to evaluate R heart - 05/31: Afebrile, but LFTs variably better/worse. ECHO from yesterday similar to one done in February. Cause remains unclear, but suspected to be viral illness. Monoscreen negative, Hepatitis panel negative. Stool studies pending (except Cdiff, which is negative). May benefit from hepatology consultation (as outpatient if improves by Sunday). Status: Acute (2) Colonic mass: Problem details: - vs incomplete distention on clinic imaging 05/28 - will need outpatient colonoscopy; not acutely prepping at this time given illness Status: Acute (3) Normocytic anemia: Problem details: - chronic, baseline Hgb 11-12 - takes thrice weekly slow iron as an outpatient (PCP is Dr. Bailey) - Stable Status: Chronic (4) Hypotension, chronic: Problem details: - typical SBP 90-100 Status: Chronic (5) Trisomy 21, Down syndrome: Problem details: - noted Status: Chronic (6) Congenital subaortic stenosis: Problem details: - Mild, Followed by [place] [facility] q 3 years - ECHO yesterday (05/31) similar to one below, EF 60-65%, LVIOT, peak velocity2.1 m/s, mean gradient 10 mmHg. 02/15/2024 10:59 AM CDT For the complete report, see the Order-Level Documents. Hemodynamics Heart Rate: 45 BPM Blood Pressure: 122 / 57 mmHg ECG: Sinus rhythm, 1st degree A-V block Final Impressions 1. Discrete subaortic ridge positioned 2 cm apical to the aortic valve annulus. Left ventricular outflow tract mean gradient 9 mmHg. Trivial aortic valve regurgitation. 2. Normal left ventricular chamber size with normal wall thickness. Calculated ejection fraction 61%. 3. Normal left ventricular diastolic function. 4. Normal right ventricular chamber size and systolic function. 5. Estimated right ventricular systolic pressure 41 mmHg (right atrial pressure of 5 mmHg). 6. Left ventricular stroke volume index 41 ml/m2. Reduced LV cardiac index (1.98 l/min/m2) due to sinus bradycardia. 7. Compared to the report of 01/28/2021 no significant change has occurred. Side by side comparison of images performed Status: Chronic (7) Varicose veins of bilateral lower extremities with other complications: Problem details: - followed by [place]; last procedure was 05/02/24 (ablation/sclerotherapy) Status: Chronic (8) Hypothyroidism: Problem details: - stable TSH, continue outpatient dose of Levothyroxine Status: Chronic Plan 53y/o male with trisomy 21 had 1-2 days of fever, vomiting, and RUQ pain. He was found to have mild leukocytosis, elevated LFTs (he has h/o lap briana), focal wall thickening of ascending colon. - d/c home with sisters when afebrile x24 hours and continual improvement in LFTs (ideally would have pending lab results as well) - sisters and brother in law updated at bedside, questions answered Time Spent With Patient Total time spent: Today I spent 35 minutes rounding on the patient. Greater than 50% included discussing care with the patient's family, team, reviewing data, updating and managing the care plan. Subjective Time Seen by Provider: 08:55 Date Seen: 05/31/24 Interval history: Malik's sisters and brother in law are in the room with him this morning. His brother in law told me that he is an anesthesiologist at [place]. Malik's family tells me that Malik wants to go home, but they remain concerned about his LFTs. They would like to know what is causing his illness. They note that he had fevers and abdominal pain when they brought him in and that he never complains of abdominal pain, so that was really concerning to them. They also note that he is much better now and is eating and drinking well. They asked about the send out labs, and we discussed the hepatitis panel results. Exam Narrative: Exam Narrative: General: No acute distress. Awake, alert, oriented. No jaundice. Oropharynx: Clear. Mucous membranes moist. Cardiovascular: Bradycardic, regular. Grade 2/6 systolic blowing murmur. Respiratory: Clear to auscultation bilaterally. No wheezes or crackles. Abdomen: Multiple well-healed surgical scars noted including a large horizontal scar in the right upper quadrant. Bowel sounds present. Soft, nondistended, nontender. Extremities: 2 to 3+ pitting edema in both lower extremity. Const: Vital Signs, click to edit/add: Vital Signs - 24 hr 05/30/24 11:00 05/30/24 15:00 05/30/24 16:02 Temperature 97.9 F 97.8 F Pulse Rate [Pulse Oximeter] 41 L 46 L Respiratory Rate 18 18 Blood Pressure [Ri ght Arm] 96/60 103/92 H Pulse Oximetry 98 96 96 Oxygen Delivery Me thod Room Air Room Air 05/30/24 19:00 05/31/24 00:21 05/31/24 00:22 Temperature 99.3 F 97.8 F Pulse Rate [Pulse Oximeter] 57 L 44 L Respiratory Rate 16 20 Blood Pressure [Ri ght Arm] 113/57 L 104/52 L Pulse Oximetry 98 95 95 Oxygen Delivery Me thod Room Air Room Air 05/31/24 05:05 05/31/24 08:07 Temperature 98.8 F 98.1 F Pulse Rate [Pulse Oximeter] 60 41 L Respiratory Rate 18 18 Blood Pressure [Ri ght Arm] 122/72 108/60 Pulse Oximetry 96 98 Oxygen Delivery Me thod Room Air Room Air Labs Labs: Laboratory Results - last 24 hr 05/28/24 05/31/24 14:45 05:44 WBC 4.43 L RBC 3.60 L Hgb 11.0 L Hct 35.2 L MCV 98 MCH 31 MCHC 31 L RDW Coeff of Lisy 15.8 H Plt Count 149 Neut % (Auto) 74.1 H Lymph % (Auto) 12.6 L [place] % (Auto) 10.8 Eos % (Auto) 1.4 Baso % (Auto) 0.9 Neut # (Auto) 3.30 Lymph # (Auto) 0.60 L [place] # (Auto) 0.50 Eos # (Auto) 0.10 Baso # (Auto) 0.00 Abs Immat Gran (auto) 0.00 Imm/Tot Granulo (auto) 0.2 INR 1.04 Sodium 138 Potassium 4.1 Chloride 106 Carbon Dioxide 24 Anion Gap 8 BUN 9 Creatinine 0.7 Estimated Creat Clear 104.54 Estimated GFR 112 Glucose 89 Calcium 8.5 Total Bilirubin 2.5 H GGT 618 H AST 73 H ALT 250 H Alkaline Phosphatase 450 H Total Protein 7.0 Albumin 3.4 Hepatitis A IgM Ab Negative Hep Bs Antigen Negative Hep B Core IgM Ab Negative Hep C Ab Index (GEOVANY) 0.19 Hep C Ab Interp GEOVANY Negative Hepatitis Interpret See Note
--- NOTE | 2024-05-31 14:27 | PC.NURSE ---
Patient alert and oriented to baseline. Up in the chair all shift. Ambulates Ax1 with a gait belt to the bathroom. Walks in the hallway with family. Denies pain. Afebrile this shift.
[2024-05-31 16:45] LABS: Acetaminophen* < 10.0 ug/mL (10.0-30.0)
[2024-05-31] MEDS: SODIUM CHLORIDE 0.9 % (FLUSH) 10 ML SYRINGE 5 ML IVF (21:00)
--- NOTE | 2024-05-31 21:58 | PC.NURSE ---
Pt VSS. SBA to bathroom. Afebrile all day. LFTs still elevated but trending down. Ate and tolerated a regular diet. IV salined locked in left forearm. Sister brought to RN's attention that she noticed some small lumps and redness in right leg but stated that redness went away. Unsure of when this started. RN assessed and noted no redness but palpated some small lump like masses beneath the skin. Asked patient if it hurt when touched and they stated no. Skin was not warm to the touch.
[2024-06-01] VITALS (9 sets, daily range): BP systolic 88–106; BP diastolic 43–63; PULSE 38–50; RESP 13–18; TEMP 36.6–37.1; O2SAT 96–97
[2024-06-01] MEDS: PIPERACILLIN/TAZOBACTAM 3.375 GM in 0.9 % SODIUM CHLORIDE Mini-bag 100 ML IVPB ×2 (05:09→10:32)
--- NOTE | 2024-06-01 05:55 | PC.NURSE ---
End of shift report [id number]: Pleasant and cooperative with cares. Denies any abdominal pain this shift. Bowel sounds active x 4 quadrants, abdomen round and soft, non tender to touch. SBA with transfers and ambulation. Urge incontinence, patient required minimal assistance with changing depend.
[2024-06-01] MEDS: LEVOTHYROXINE 75 MCG TABLET 150 MCG PO (06:03)
[2024-06-01] MEDS: SODIUM CHLORIDE 0.9 % (FLUSH) 10 ML SYRINGE 5 ML IVF ×2 (06:06→10:38)
[2024-06-01 07:07] LABS: Basophils Absolute Auto 0.05 K/uL (0.00-0.30); Basophils Percent Auto 1.1 % (0.0-3.0); Eosinophils Percent Auto 2.1 % (0.0-7.0); Hematocrit 35.9 % (37.0-53.0); Hemoglobin* 11.5 gm/dL (13.5-17.5); Immature Granulocytes Abs Auto 0.06 K/uL (0.00-0.30); Immature Granulocytes Pct Auto 1.3 %; Mean Corpuscular HGB Conc 32 gm/dL (32-36); Mean Corpuscular Hemoglobin 31 pg (26-34); Mean Corpuscular Volume 97 fL (80-100); Monocytes Percent Auto 11.6 % (0.0-11.0); Neutrophils Absolute Auto 3.12 K/uL (1.7-7.0); Neutrophils Percent Auto 66.9 % (42.0-72.0); Platelet Count* 180 K/uL (140-440); RDW Coefficient of Variation % 15.7 % (11.5-15.5); Red Blood Count 3.72 m/uL (4.30-5.90); White Blood Count* 4.66 K/uL (4.50-11.00)
[2024-06-01 07:12] LABS: Slide Review Reflex No
[2024-06-01 07:29] LABS: Albumin* 3.7 g/dL (3.3-5.0); Chloride* 105 mmol/L (96-114)
[2024-06-01 07:30] LABS: Gamma Glutamyl Transpeptidase* 756 U/L (8-55); Potassium* 4.1 mmol/L (3.6-5.1); Sodium* 138 mmol/L (135-149)
[2024-06-01 07:32] LABS: Creatinine* 0.7 mg/dL (0.5-1.5); Est. Creatinine Clearance* 104.54; Estimated Glomerular Filt Rate 112 ml/min
[2024-06-01 07:33] LABS: Alanine Aminotransferase* 206 U/L (4-50); Alkaline Phosphatase* 592 U/L (40-150); Anion Gap 7 mEq/L (7-15); Aspartate Amino Transferase* 61 U/L (12-35); Bilirubin Direct* 1.5 mg/dL (0.0-0.5); Bilirubin Total* 1.9 mg/dL (0.1-1.5); Blood Urea Nitrogen* 13 mg/dL (7-30); Calcium* 8.8 mg/dL (8.4-10.6); Carbon Dioxide* 26 mmol/L (20-32); Glucose* 92 mg/dL (60-115); Total Protein* 7.2 g/dL (6.0-8.3)
--- NOTE | 2024-06-01 11:27 | CRLHL7_ITS ---
For Patients: As a result of the Cures Act, medical imaging exams and procedure reports are released immediately into your electronic medical record. You may view this report before your referring provider. If you have questions, please contact your health care provider. INDICATION: Thrombus along the greater saphenous veins and varicosities extending bilateral lower extremity swelling TECHNIQUE: A compression venous ultrasound exam was performed of both lower extremities using bergman scale imaging, color Doppler and spectral Doppler analysis. FINDINGS: : Superficial femoral vein. Thrombus on the left along the greater saphenous vein and varicosities extending to the left common femoral vein without involvement of the common femoral vein Sonographic imaging of the lower extremities demonstrates normal compressibility and color Doppler venous blood flow within the common femoral, deep femoral, and proximal greater saphenous veins. Within the thighs the femoral veins are patent and compressible. The right popliteal and posterior tibial veins are not seen. Normal compressibility without thrombus of the left popliteal vein posterior tibial vein IMPRESSION: 1. Bilateral superficial thrombus in the greater saphenous vein and varicosities on the right extending 0.4 centimeters from the common femoral vein. Superficial thrombus within the left greater saphenous vein and varicosities extending up to the common femoral vein but not involving the common femoral vein. 2. Nonvisualization of the right popliteal and posterior tibial vein. Dictated by Jimena Botello MD @ 06/01/2024 2:18:31 PM (Electronically Signed)
--- NOTE | 2024-06-01 12:59 | PM.IMPN1 ---
Progress Note: A&P Assessment and plan (1) LFT elevation: Problem details: - marked elevation (notably normal in February 2024) - acute with elevated INR. Negative Monospot, B CX NGTD - pending: Hepatitis panel, stool studies, CMV - 05/29: reassuring MRCP. Reviewed with ID: c/w viral illness. While awaiting lab results: continue Zosyn, add on CMV and COVID, continue to trend LFTs - 05/30: continuing to improve, adding TTE to evaluate R heart - 05/31: Afebrile, but LFTs variably better/worse. ECHO from yesterday similar to one done in February. Cause remains unclear, but suspected to be viral illness. Monoscreen negative, Hepatitis panel negative. Stool studies pending (except Cdiff, which is negative). - 06/01: Afebrile. AST/ALT/bili improving. GGT and Alk Phos increasing. Spoke with Dr. Redd from [facility]. Recommended no ERCP. Suspected cholestasis probably viral, recent antibiotic or herbal supplement vs autoimmune. EBV, CMV, hepatitis panel negative. Ordered HSV and autoimmune labs today. Continue zosyn, recheck LFTs. Unclear what to expect from GGT, Dr. Redd also stated no clear benefit from following this lab. Status: Acute (2) Superficial thrombosis of both lower extremities: Problem details: - Bilateral superficial thrombus in the greater saphenous vein and varicosities on the right extending 0.4 centimeters from the common femoral vein. Superficial thrombus within the left greater saphenous vein and varicosities extending up to the common femoral vein but not involving the common femoral vein. - Suspect related to recent bilateral vein ablation done at [place] [facility] 05/02/24. - Intermediate risk of extension. Continue low dose lovenox for 45 days. Status: Acute (3) Varicose veins of bilateral lower extremities with other complications: Problem details: - followed by [facility]; last procedure was 05/02/24 (ablation/sclerotherapy) Status: Chronic (4) Colonic mass: Problem details: - vs incomplete distention on clinic imaging 05/28 - will need outpatient colonoscopy; not acutely prepping at this time given illness Status: Acute (5) Normocytic anemia: Problem details: - chronic, baseline Hgb 11-12 - takes thrice weekly slow iron as an outpatient (PCP is Dr. Bailey) - Stable Status: Chronic (6) Hypotension, chronic: Problem details: - typical SBP 90-100 Status: Chronic (7) Trisomy 21, Down syndrome: Problem details: - noted Status: Chronic (8) Congenital subaortic stenosis: Problem details: - Mild, Followed by [facility] q 3 years - ECHO yesterday (05/31) similar to one below, EF 60-65%, LVIOT, peak velocity2.1 m/s, mean gradient 10 mmHg. 02/15/2024 10:59 AM CDT For the complete report, see the Order-Level Documents. Hemodynamics Heart Rate: 45 BPM Blood Pressure: 122 / 57 mmHg ECG: Sinus rhythm, 1st degree A-V block Final Impressions 1. Discrete subaortic ridge positioned 2 cm apical to the aortic valve annulus. Left ventricular outflow tract mean gradient 9 mmHg. Trivial aortic valve regurgitation. 2. Normal left ventricular chamber size with normal wall thickness. Calculated ejection fraction 61%. 3. Normal left ventricular diastolic function. 4. Normal right ventricular chamber size and systolic function. 5. Estimated right ventricular systolic pressure 41 mmHg (right atrial pressure of 5 mmHg). 6. Left ventricular stroke volume index 41 ml/m2. Reduced LV cardiac index (1.98 l/min/m2) due to sinus bradycardia. 7. Compared to the report of 01/28/2021 no significant change has occurred. Side by side comparison of images performed Status: Chronic (9) Hypothyroidism: Problem details: - stable TSH, continue outpatient dose of Levothyroxine Status: Chronic Plan 53y/o male with trisomy 21 had 1-2 days of fever, vomiting, and RUQ pain. He was found to have mild leukocytosis, elevated LFTs (he has h/o lap briana), focal wall thickening of ascending colon. - d/c home with sisters when afebrile x24 hours and continual improvement in LFTs (ideally would have pending lab results as well) - sisters and brother in law updated at bedside, questions answered Time Spent With Patient Total time spent: Today I spent 75 minutes rounding on the patient. Greater than 50% included discussing care with the patient's family, phone calls with general surgery and [facility] physician, team, reviewing data, updating and managing the care plan. Subjective Time Seen by Provider: 10:30 Date Seen: 06/01/24 Interval history: Extensive conversation with the patient's family today about potential causes of cholestatic picture. We all agreed that he has been afebrile recently, is eating well and denies pain. He clinically improving. He has not been taking any antibiotics or supplements with potential liver effects in the last three months. They were concerned that he has a swelling on his RLE medial superior calf. I reviewed his chart, labs, medications, imaging. I spoke with Dr. Patton who suggested transfer for ERCP. I called [facility] (per patient's POA preference) and spoke with Dr. Patti Redd from GI. She noted that this appears to be a cholestatic picture that is likely medication related from something in the last three months, but that we should rule out other causes, such as viral illnesses or autoimmune disease. She recommended against ERCP at this time and to follow labs for a few more days. I spoke with family again about this recommendations. Exam Narrative: Exam Narrative: General: No acute distress. Awake, alert, oriented. No jaundice. Oropharynx: Clear. Mucous membranes moist. Cardiovascular: Bradycardic, regular. Grade 2/6 systolic blowing murmur. Respiratory: Clear to auscultation bilaterally. No wheezes or crackles. Abdomen: Multiple well-healed surgical scars noted including a large horizontal scar in the right upper quadrant. Bowel sounds present. Soft, nondistended, nontender. Extremities: 2 to 3+ pitting edema in both lower extremity. Const: Vital Signs, click to edit/add: Vital Signs - 24 hr 05/31/24 15:00 05/31/24 15:00 05/31/24 15:00 Temperature 98.4 F Pulse Rate [Pulse Oximeter] 48 L 48 L Respiratory Rate 20 20 Blood Pressure [Ri t Arm] 108/53 L Pulse Oximetry 99 99 Oxygen Delivery Me thod Room Air 05/31/24 19:00 05/31/24 23:00 05/31/24 23:00 Temperature 98.6 F Pulse Rate [Pulse Oximeter] 50 L 50 L Respiratory Rate 18 18 Blood Pressure [Ri ght Arm] 102/69 Pulse Oximetry 100 100 Oxygen Delivery Me thod Room Air 06/01/24 03:00 06/01/24 08:37 06/01/24 11:55 Temperature 97.9 F 98.5 F 98.7 F Pulse Rate [Pulse Oximeter] 45 L 38 L 41 L Respiratory Rate 18 13 17 Blood Pressure [Ri ght Arm] 106/59 L 99/56 L 88/63 L Pulse Oximetry 97 97 97 Oxygen Delivery Me thod Room Air Room Air Room Air Labs Labs: Laboratory Results - last 24 hr 05/28/24 05/31/24 06/01/24 14:55 16:28 05:52 WBC 4.66 RBC 3.72 L Hgb 11.5 L Hct 35.9 L MCV 97 MCH 31 MCHC 32 RDW Coeff of Lisy 15.7 H Plt Count 180 Neut % (Auto) 66.9 Lymph % (Auto) 17.0 L [place] % (Auto) 11.6 H Eos % (Auto) 2.1 Baso % (Auto) 1.1 Neut # (Auto) 3.12 Lymph # (Auto) 0.80 L [place] # (Auto) 0.50 Eos # (Auto) 0.10 Baso # (Auto) 0.05 Abs Immat Gran (auto) 0.06 Imm/Tot Granulo (auto) 1.3 Sodium 138 Potassium 4.1 Chloride 105 Carbon Dioxide 26 Anion Gap 7 BUN 13 Creatinine 0.7 Estimated Creat Clear 104.54 Estimated GFR 112 Glucose 92 Calcium 8.8 Total Bilirubin 1.9 H Direct Bilirubin 1.5 H GGT 756 H AST 61 H ALT 206 H Alkaline Phosphatase 592 H C-Reactive Protein 8.0 H Total Protein 7.2 Albumin 3.7 Acetaminophen < 10.0 L Lab Acknowledgement Test Added Ordering Physician: Karen Holm M.D. Date of Service: 06/01/24 Procedure(s): US venous LE BI Accession Number(s): [id number] cc: Karen Holm M.D.; Provider,Not a Local~ For Patients: As a result of the Century Cures Act, medical imaging exams and procedure reports are released immediately into your electronic medical record. You may view this report before your referring provider. If you have questions, please contact your health care provider. INDICATION: Thrombus along the greater saphenous veins and varicosities extending bilateral lower extremity swelling TECHNIQUE: A compression venous ultrasound exam was performed of both lower extremities using bergman scale imaging, color Doppler and spectral Doppler analysis. FINDINGS: : Superficial femoral vein. Thrombus on the left along the greater saphenous vein and varicosities extending to the left common femoral vein without involvement of the common femoral vein Sonographic imaging of the lower extremities demonstrates normal compressibility and color Doppler venous blood flow within the common femoral, deep femoral, and proximal greater saphenous veins. Within the thighs the femoral veins are patent and compressible. The right popliteal and posterior tibial veins are not seen. Normal compressibility without thrombus of the left popliteal vein posterior tibial vein IMPRESSION: 1. Bilateral superficial thrombus in the greater saphenous vein and varicosities on the right extending 0.4 centimeters from the common femoral vein. Superficial thrombus within the left greater saphenous vein and varicosities extending up to the common femoral vein but not involving the common femoral vein. 2. Nonvisualization of the right popliteal and posterior tibial vein. Dictated by Jimena Botello MD @ 06/01/2024 2:18:31 PM (Electronically Signed)
--- NOTE | 2024-06-01 15:22 | PC.NURSE ---
Patient alert and oriented. Up in chair all shift. Walks with family in the hallway. Teds socks off all shift at family request. They were concerned about right extremity swelling, Ultrasound ordered. Patient's vitals stable. Had a BM this shift
[2024-06-01] MEDS: ENOXAPARIN 30 MG/0.3ML INJ SUBCUT (20:32)
[2024-06-02] VITALS (10 sets, daily range): BP systolic 98–117; BP diastolic 47–92; PULSE 42–50; RESP 14–18; TEMP 36–37; O2SAT 93–97
[2024-06-02] MEDS: LEVOTHYROXINE 75 MCG TABLET 150 MCG PO (06:03)
--- NOTE | 2024-06-02 06:21 | PC.NURSE ---
End of shift [id number]: A&O pleasant and cooperative. Pt denies pain. SBA to bathroom. Pt appeared to be sleeping comfortable overnight. Using call light appropriately.
[2024-06-02 06:32] LABS: Basophils Absolute Auto 0.05 K/uL (0.00-0.30); Eosinophils Absolute Auto 0.11 K/uL (0.00-0.50); Eosinophils Percent Auto 2.2 % (0.0-7.0); Hematocrit 35.2 % (37.0-53.0); Hemoglobin* 11.2 gm/dL (13.5-17.5); Immature Granulocytes Abs Auto 0.07 K/uL (0.00-0.30); Immature Granulocytes Pct Auto 1.4 %; Ionized Calcium* 1.12 mmol/L (1.11-1.30); Mean Corpuscular HGB Conc 32 gm/dL (32-36); Mean Corpuscular Hemoglobin 31 pg (26-34); Mean Corpuscular Volume 96 fL (80-100); Monocytes Percent Auto 9.7 % (0.0-11.0); Neutrophils Absolute Auto 3.31 K/uL (1.7-7.0); Neutrophils Percent Auto 66.7 % (42.0-72.0); Platelet Count* 191 K/uL (140-440); RDW Coefficient of Variation % 15.9 % (11.5-15.5); Red Blood Count 3.65 m/uL (4.30-5.90); White Blood Count* 4.96 K/uL (4.50-11.00)
[2024-06-02 06:34] LABS: Slide Review Reflex No
[2024-06-02 06:50] LABS: Albumin* 3.5 g/dL (3.3-5.0)
[2024-06-02 06:53] LABS: Aspartate Amino Transferase* 77 U/L (12-35); Bilirubin Direct* 1.3 mg/dL (0.0-0.5); Bilirubin Total* 1.8 mg/dL (0.1-1.5); Total Protein* 6.9 g/dL (6.0-8.3)
[2024-06-02 06:54] LABS: Alanine Aminotransferase* 185 U/L (4-50); Alkaline Phosphatase* 625 U/L (40-150)
--- NOTE | 2024-06-02 10:32 | PM.IMPN1 ---
Progress Note: A&P Assessment and plan (1) LFT elevation: Problem details: - marked elevation (notably normal in February 2024) - acute with elevated INR. Negative Monospot, B CX NGTD - pending: Hepatitis panel, stool studies, CMV - 05/29: reassuring MRCP. Reviewed with ID: c/w viral illness. While awaiting lab results: continue Zosyn, add on CMV and COVID, continue to trend LFTs - 05/30: continuing to improve, adding TTE to evaluate R heart - 05/31: Afebrile, but LFTs variably better/worse. ECHO from yesterday similar to one done in February. Cause remains unclear, but suspected to be viral illness. Monoscreen negative, Hepatitis panel negative. Stool studies pending (except Cdiff, which is negative). - 06/01: Afebrile. AST/ALT/bili improving. GGT and Alk Phos increasing. Spoke with Dr. Redd from [facility]. Recommended no ERCP. Suspected cholestasis probably viral, recent antibiotic or herbal supplement vs autoimmune. EBV, CMV, hepatitis panel negative. Ordered HSV and autoimmune labs today. Continue zosyn, recheck LFTs. Unclear what to expect from GGT, Dr. Redd also stated no clear benefit from following this lab. - 06/02: LFTs continue to fluctuate. HSV, autoimmune labs pending. Status: Acute (2) Superficial thrombosis of both lower extremities: Problem details: - Bilateral superficial thrombus in the greater saphenous vein and varicosities on the right extending 0.4 centimeters from the common femoral vein. Superficial thrombus within the left greater saphenous vein and varicosities extending up to the common femoral vein but not involving the common femoral vein. - Suspect related to recent bilateral vein ablation done at [facility] 05/02/24. - Intermediate risk of extension. Continue low dose lovenox for 45 days. Due to abnormal LFTs, will avoid Xarelto. Status: Acute (3) Varicose veins of bilateral lower extremities with other complications: Problem details: - followed by [facility]; last procedure was 05/02/24 (ablation/sclerotherapy) Status: Chronic (4) Colonic mass: Problem details: - vs incomplete distention on clinic imaging 05/28 - will need outpatient colonoscopy; not acutely prepping at this time given illness Status: Acute (5) Normocytic anemia: Problem details: - chronic, baseline Hgb 11-12 - takes thrice weekly slow iron as an outpatient (PCP is Dr. Bailey) - Stable Status: Chronic (6) Hypotension, chronic: Problem details: - typical SBP 90-100 Status: Chronic (7) Trisomy 21, Down syndrome: Problem details: - noted Status: Chronic (8) Congenital subaortic stenosis: Problem details: - Mild, Followed by [facility] q 3 years - ECHO yesterday (05/31) similar to one below, EF 60-65%, LVIOT, peak velocity2.1 m/s, mean gradient 10 mmHg. 02/15/2024 10:59 AM CDT For the complete report, see the Order-Level Documents. Hemodynamics Heart Rate: 45 BPM Blood Pressure: 122 / 57 mmHg ECG: Sinus rhythm, 1st degree A-V block Final Impressions 1. Discrete subaortic ridge positioned 2 cm apical to the aortic valve annulus. Left ventricular outflow tract mean gradient 9 mmHg. Trivial aortic valve regurgitation. 2. Normal left ventricular chamber size with normal wall thickness. Calculated ejection fraction 61%. 3. Normal left ventricular diastolic function. 4. Normal right ventricular chamber size and systolic function. 5. Estimated right ventricular systolic pressure 41 mmHg (right atrial pressure of 5 mmHg). 6. Left ventricular stroke volume index 41 ml/m2. Reduced LV cardiac index (1.98 l/min/m2) due to sinus bradycardia. 7. Compared to the report of 01/28/2021 no significant change has occurred. Side by side comparison of images performed Status: Chronic (9) Hypothyroidism: Problem details: - stable TSH, continue outpatient dose of Levothyroxine Status: Chronic Plan 53y/o male with trisomy 21 had 1-2 days of fever, vomiting, and RUQ pain. He was found to have mild leukocytosis, elevated LFTs (he has h/o lap briana), focal wall thickening of ascending colon. - d/c home with sisters when afebrile x24 hours and improvement in LFTs (ideally would have pending lab results as well) - sisters and brother in law updated at bedside, questions answered Time Spent With Patient Total time spent: Today I spent 35 minutes rounding on the patient. Greater than 50% included discussing care with the patient's family, phone calls with general surgery and [facility] physician, team, reviewing data, updating and managing the care plan. Subjective Time Seen by Provider: 08:50 Date Seen: 06/02/24 Interval history: Malik is feeling well today. He is eating well and denies pain. His two sisters are in the room with him, along with a different brother in law. Malik's family notes that his RLE is more swollen today. We discussed labs, antibiotics, anticoagulation, superficial vein thrombosis, and send out labs. Exam Narrative: Exam Narrative: General: No acute distress. Awake, alert, oriented. No jaundice. Oropharynx: Clear. Mucous membranes moist. Cardiovascular: Bradycardic, regular. Grade 2/6 systolic blowing murmur, unchanged. Respiratory: Clear to auscultation bilaterally. No wheezes or crackles. Abdomen: Bowel sounds present. Soft, nondistended, nontender. Extremities: 2+ pitting edema of LLE, 3+ pitting edema of RLE, slightly worse today. Palpable cords over right superior medial calf. Const: Vital Signs, click to edit/add: Vital Signs - 24 hr 06/01/24 11:55 06/01/24 15:00 06/01/24 15:00 Temperature 98.7 F Pulse Rate [Pulse Oximeter] 41 L 44 L Respiratory Rate 17 18 Blood Pressure [Ri ght Arm] 88/63 L Pulse Oximetry 97 97 Oxygen Delivery Me thod Room Air 06/01/24 15:00 06/01/24 19:00 06/01/24 23:00 Temperature 98.4 F 98.7 F Pulse Rate [Pulse Oximeter] 44 L 50 L 44 L Respiratory Rate 18 18 Blood Pressure [Ri ght Arm] 98/63 104/52 L Pulse Oximetry 97 96 Oxygen Delivery Me thod Room Air Room Air 06/01/24 23:08 06/01/24 23:13 06/02/24 02:58 Temperature 98.0 F Pulse Rate [Pulse Oximeter] 44 L Respiratory Rate 14 Blood Pressure [Ri ght Arm] 99/43 L Pulse Oximetry 96 96 Oxygen Delivery Hi thod Room Air 06/02/24 04:50 Temperature 97.5 F L Pulse Rate [Pulse Oximeter] 42 L Respiratory Rate 16 Blood Pressure [Ri ght Arm] 106/47 L Pulse Oximetry 96 Oxygen Delivery Hi thod Room Air Labs Labs: Laboratory Results - last 24 hr 06/02/24 06:02 WBC 4.96 RBC 3.65 L Hgb 11.2 L Hct 35.2 L MCV 96 MCH 31 MCHC 32 RDW Coeff of Lisy 15.9 H Plt Count 191 Neut % (Auto) 66.7 Lymph % (Auto) 19.0 L [place] % (Auto) 9.7 Eos % (Auto) 2.2 Baso % (Auto) 1.0 Neut # (Auto) 3.31 Lymph # (Auto) 0.90 [place] # (Auto) 0.50 Eos # (Auto) 0.11 Baso # (Auto) 0.05 Abs Immat Gran (auto) 0.07 Imm/Tot Granulo (auto) 1.4 Ionized Calcium [place] 1.12 Total Bilirubin 1.8 H Direct Bilirubin 1.3 H AST 77 H ALT 185 H Alkaline Phosphatase 625 H Total Protein 6.9 Albumin 3.5 Ordering Physician: Karen Holm M.D. Date of Service: 06/01/24 Procedure(s): US venous LE BI Accession Number(s): [id number] cc: Karen Holm M.D.; Provider,Not a Local~ For Patients: As a result of the Cures Act, medical imaging exams and procedure reports are released immediately into your electronic medical record. You may view this report before your referring provider. If you have questions, please contact your health care provider. INDICATION: Thrombus along the greater saphenous veins and varicosities extending bilateral lower extremity swelling TECHNIQUE: A compression venous ultrasound exam was performed of both lower extremities using bergman scale imaging, color Doppler and spectral Doppler analysis. FINDINGS: : Superficial femoral vein. Thrombus on the left along the greater saphenous vein and varicosities extending to the left common femoral vein without involvement of the common femoral vein Sonographic imaging of the lower extremities demonstrates normal compressibility and color Doppler venous blood flow within the common femoral, deep femoral, and proximal greater saphenous veins. Within the thighs the femoral veins are patent and compressible. The right popliteal and posterior tibial veins are not seen. Normal compressibility without thrombus of the left popliteal vein posterior tibial vein IMPRESSION: 1. Bilateral superficial thrombus in the greater saphenous vein and varicosities on the right extending 0.4 centimeters from the common femoral vein. Superficial thrombus within the left greater saphenous vein and varicosities extending up to the common femoral vein but not involving the common femoral vein. 2. Nonvisualization of the right popliteal and posterior tibial vein. Dictated by Jimena Botello MD @ 06/01/2024 2:18:31 PM (Electronically Signed)
[2024-06-02] MEDS: ENOXAPARIN 30 MG/0.3ML INJ SUBCUT ×2 (10:34→20:33)
[2024-06-03 00:15] VITALS: BP 109/59; PULSE 37; RESP 18; TEMP 36.1; O2SAT 97
[2024-06-03 03:00] VITALS: BP 109/68; PULSE 50; RESP 18; TEMP 36.1; O2SAT 98
--- NOTE | 2024-06-03 05:42 | PC.NURSE ---
19-0700: The patient is pleasant and cooperative during cares. Garbled speech at times. GI assessment was completed appears to have little to no discomfort upon palpation... bowel sounds active. BLE have some swelling, ambulates with SBA. Needs minimal assistance in BR. Continent of bladder this shift. Slept comfortably with the lights on and TV on. Call light within reach. Janet CAPUTO BSN
[2024-06-03 06:30] LABS: Basophils Absolute Auto 0.07 K/uL (0.00-0.30); Basophils Percent Auto 1.4 % (0.0-3.0); Eosinophils Absolute Auto 0.11 K/uL (0.00-0.50); Eosinophils Percent Auto 2.2 % (0.0-7.0); Hematocrit 37.2 % (37.0-53.0); Hemoglobin* 11.7 gm/dL (13.5-17.5); Immature Granulocytes Abs Auto 0.11 K/uL (0.00-0.30); Immature Granulocytes Pct Auto 2.2 %; Lymphocytes Absolute Auto 1.02 K/uL (0.90-2.90); Lymphocytes Percent Auto 20.7 % (20-44); Mean Corpuscular HGB Conc 32 gm/dL (32-36); Mean Corpuscular Hemoglobin 31 pg (26-34); Mean Corpuscular Volume 98 fL (80-100); Monocytes Percent Auto 10.8 % (0.0-11.0); Neutrophils Absolute Auto 3.08 K/uL (1.7-7.0); Neutrophils Percent Auto 62.7 % (42.0-72.0); Platelet Count* 226 K/uL (140-440); RDW Coefficient of Variation % 15.8 % (11.5-15.5); Red Blood Count 3.81 m/uL (4.30-5.90); White Blood Count* 4.92 K/uL (4.50-11.00)
[2024-06-03 06:32] LABS: Slide Review Reflex No
[2024-06-03 06:46] LABS: Albumin* 3.9 g/dL (3.3-5.0)
[2024-06-03] MEDS: LEVOTHYROXINE 75 MCG TABLET 150 MCG PO (06:46)
[2024-06-03 06:49] LABS: Alkaline Phosphatase* 665 U/L (40-150); Aspartate Amino Transferase* 102 U/L (12-35); Bilirubin Total* 1.3 mg/dL (0.1-1.5); Total Protein* 7.5 g/dL (6.0-8.3)
[2024-06-03 06:50] LABS: Alanine Aminotransferase* 201 U/L (4-50)
--- NOTE | 2024-06-03 08:21 | P.IMPN_ITS ---
Progress Note: A&P Assessment and plan (1) LFT elevation: Problem details: - marked elevation (notably normal in February 2024) - acute with elevated INR. Negative Monospot, B CX NGTD - pending: Hepatitis panel, stool studies, CMV - 05/29: reassuring MRCP. Reviewed with ID: c/w viral illness. While awaiting lab results: continue Zosyn, add on CMV and COVID, continue to trend LFTs - 05/30: continuing to improve, adding TTE to evaluate R heart - 05/31: Afebrile, but LFTs variably better/worse. ECHO from yesterday similar to one done in February. Cause remains unclear, but suspected to be viral illness. Monoscreen negative, Hepatitis panel negative. Stool studies pending (except Cdiff, which is negative). - 06/01: Afebrile. AST/ALT/bili improving. GGT and Alk Phos increasing. Spoke with Dr. Redd from [facility]. Recommended no ERCP. Suspected cholestasis probably viral, recent antibiotic or herbal supplement vs autoimmune. EBV, CMV, hepatitis panel negative. Ordered HSV and autoimmune labs today. Continue zosyn, recheck LFTs. Unclear what to expect from [facility], Dr. Redd also stated no clear benefit from following this lab. - 06/03: LFTs continue to fluctuate slighly, with slight trend upward today in AST, ALT, AP. HSV, autoimmune labs pending. Family agrees with current plan to monitor and await send out labs. If dramatic increase, or ongoing upward trend, may benefit from another conversation with [facility]. Status: Acute (2) Superficial thrombosis of both lower extremities: Problem details: - Bilateral superficial thrombus in the greater saphenous vein and varicosities on the right extending 0.4 centimeters from the common femoral vein. Superficial thrombus within the left greater saphenous vein and varicosities extending up to the common femoral vein but not involving the common femoral vein. - Suspect related to recent bilateral vein ablation done at [facility] 05/02/24. - Intermediate risk of extension. Continue low dose lovenox for 45 days. Due to abnormal LFTs, will avoid Xarelto. - 06/03: Patient's sister, Amanda, stated that Glenn spoke with Dr. Orellana who did Malik's vein ablation on 05/02 and he compared our US to the one done on 05/13. Amanda tells me he saw no difference. Continue enoxaparin. Avoiding Xarelto/Eliquis due to elevated LFTs. Status: Acute (3) Varicose veins of bilateral lower extremities with other complications: Problem details: - followed by [facility]; last procedure was 05/02/24 (ablation/sclerotherapy) Status: Chronic (4) Colonic mass: Problem details: - vs incomplete distention on clinic imaging 05/28 - will need outpatient colonoscopy; not acutely prepping at this time given illness Status: Acute (5) Normocytic anemia: Problem details: - chronic, baseline Hgb 11-12 - takes thrice weekly slow iron as an outpatient (PCP is Dr. Bailey) - Stable Status: Chronic (6) Hypotension, chronic: Problem details: - typical SBP 90-100 Status: Chronic (7) Trisomy 21, Down syndrome: Problem details: - noted Status: Chronic (8) Congenital subaortic stenosis: Problem details: - Mild, Followed by [facility] q 3 years - ECHO yesterday (05/31) similar to one below, EF 60-65%, LVIOT, peak velocity2.1 m/s, mean gradient 10 mmHg. 02/15/2024 10:59 AM CDT For the complete report, see the Order-Level Documents. Hemodynamics Heart Rate: 45 BPM Blood Pressure: 122 / 57 mmHg ECG: Sinus rhythm, 1st degree A-V block Final Impressions 1. Discrete subaortic ridge positioned 2 cm apical to the aortic valve annulus. Left ventricular outflow tract mean gradient 9 mmHg. Trivial aortic valve regurgitation. 2. Normal left ventricular chamber size with normal wall thickness. Calculated ejection fraction 61%. 3. Normal left ventricular diastolic function. 4. Normal right ventricular chamber size and systolic function. 5. Estimated right ventricular systolic pressure 41 mmHg (right atrial pressure of 5 mmHg). 6. Left ventricular stroke volume index 41 ml/m2. Reduced LV cardiac index (1.98 l/min/m2) due to sinus bradycardia. 7. Compared to the report of 01/28/2021 no significant change has occurred. Side by side comparison of images performed Status: Chronic (9) Hypothyroidism: Problem details: - stable TSH, continue outpatient dose of Levothyroxine Status: Chronic (10) Sinus bradycardia, chronic: Problem details: - 40-50s. HR was 45 on ECHO done at [facility] in February. - HR has remained stable, he is asymptomatic. Status: Chronic Plan 53y/o male with trisomy 21 had 1-2 days of fever, vomiting, and RUQ pain. He was found to have mild leukocytosis, elevated LFTs (he has h/o lap briana), focal wall thickening of ascending colon. - d/c home with sisters when afebrile x24 hours and improvement in LFTs, awaiting send out labs. - sisters updated at bedside, questions answered Time Spent With Patient Total time spent: Today I spent 45 minutes rounding on the patient. Greater than 50% included d iscussing care with the patient's family on several occasions as more family came and had more questions, team, reviewing data, updating and managing the care plan. Subjective Time Seen by Provider: 08:21 Date Seen: 06/03/24 Interval history: Malik feels well. Denies pain. He is eating well. He went for 6 short walks yesterday. Exam Narrative: Exam Narrative: General: No acute distress. Awake, alert, oriented. No jaundice. Oropharynx: Clear. Mucous membranes moist. Cardiovascular: Bradycardic, regular. Grade 2/6 systolic blowing murmur, unchanged. Respiratory: Clear to auscultation bilaterally. No wheezes or crackles. Abdomen: Bowel sounds present. Soft, nondistended, nontender. Extremities: 2+ pitting edema of LLE, 3+ pitting edema of RLE, unchanged. Palpable cords over right superior medial calf are stable. Const: Vital Signs, click to edit/add: Vital Signs - 24 hr 06/02/24 12:00 06/02/24 15:30 06/02/24 15:30 Temperature 98 F Pulse Rate [Pulse Oximeter] 49 L 47 L Respiratory Rate 16 18 Blood Pressure [Le ft Arm] Blood Pressure [Ri ght Arm] 113/92 H Pulse Oximetry 97 96 Oxygen Delivery Me thod Room Air 06/02/24 15:46 06/02/24 19:00 06/02/24 22:20 Temperature 98.6 F 97.1 F L 96.8 F L Pulse Rate [Pulse Oximeter] 47 L 50 L 45 L Respiratory Rate 18 16 16 Blood Pressure [Le ft Arm] Blood Pressure [Ri ght Arm] 98/52 L 116/62 106/49 L Pulse Oximetry 96 93 95 Oxygen Delivery Me thod Room Air Room Air Room Air 06/02/24 23:00 06/03/24 03:00 Temperature 97.0 F L Pulse Rate [Pulse Oximeter] 50 L Respiratory Rate 18 Blood Pressure [Le ft Arm] 109/68 Blood Pressure [Ri ght Arm] Pulse Oximetry 93 98 Oxygen Delivery Me thod Room Air Labs Labs: Laboratory Results - last 24 hr 06/03/24 05:49 WBC 4.92 RBC 3.81 L Hgb 11.7 L Hct 37.2 MCV 98 MCH 31 MCHC 32 RDW Coeff of Lisy 15.8 H Plt Count 226 Neut % (Auto) 62.7 Lymph % (Auto) 20.7 Levy % (Auto) 10.8 Eos % (Auto) 2.2 Baso % (Auto) 1.4 Neut # (Auto) 3.08 Lymph # (Auto) 1.02 Levy # (Auto) 0.50 Eos # (Auto) 0.11 Baso # (Auto) 0.07 Abs Immat Gran (auto) 0.11 Imm/Tot Granulo (auto) 2.2 Total Bilirubin 1.3 Direct Bilirubin 1.0 H AST 102 H ALT 201 H Alkaline Phosphatase 665 H Total Protein 7.5 Albumin 3.9
[2024-06-03 08:30] VITALS: BP 95/55; PULSE 45; PULSE 50; RESP 18; TEMP 36.3; O2SAT 97
[2024-06-03] MEDS: ENOXAPARIN 30 MG/0.3ML INJ SUBCUT ×2 (11:06→20:22)
[2024-06-03 15:00] VITALS: BP 107/53; PULSE 48; RESP 18; TEMP 36.1; O2SAT 97
[2024-06-03 16:08] LABS: Anti-Nuclear Ab(ANA)IgG ELISA None Detected (None Detected)
[2024-06-03 20:10] VITALS: BP 108/52; PULSE 42; RESP 18; TEMP 36.5; O2SAT 95
[2024-06-03 23:00] VITALS: RESP 18; O2SAT 95
[2024-06-04 03:00] VITALS: RESP 18
[2024-06-04 05:20] LABS: HSV 1 Subtype by PCR Not Detected; HSV 2 Subtype by PCR Not Detected; Herpes Simplex Subtype Source Plasma
[2024-06-04] MEDS: LEVOTHYROXINE 75 MCG TABLET 150 MCG PO (06:11)
--- NOTE | 2024-06-04 06:39 | PC.NURSE ---
19-: Pleasant and cooperative. Calls appropriately. No c/o pain. No BM. Afebrile.
[2024-06-04 07:07] LABS: Basophils Absolute Auto 0.06 K/uL (0.00-0.30); Basophils Percent Auto 1.2 % (0.0-3.0); Eosinophils Absolute Auto 0.13 K/uL (0.00-0.50); Eosinophils Percent Auto 2.5 % (0.0-7.0); Hematocrit 37.6 % (37.0-53.0); Immature Granulocytes Abs Auto 0.19 K/uL (0.00-0.30); Immature Granulocytes Pct Auto 3.7 %; Lymphocytes Percent Auto 18.9 % (20-44); Mean Corpuscular HGB Conc 32 gm/dL (32-36); Mean Corpuscular Hemoglobin 31 pg (26-34); Mean Corpuscular Volume 97 fL (80-100); Monocytes Percent Auto 10.5 % (0.0-11.0); Neutrophils Absolute Auto 3.25 K/uL (1.7-7.0); Neutrophils Percent Auto 63.2 % (42.0-72.0); Platelet Count* 255 K/uL (140-440); RDW Coefficient of Variation % 15.9 % (11.5-15.5); Red Blood Count 3.88 m/uL (4.30-5.90); White Blood Count* 5.14 K/uL (4.50-11.00)
[2024-06-04 07:11] LABS: Slide Review Reflex No
[2024-06-04 07:25] LABS: Albumin* 3.8 g/dL (3.3-5.0)
[2024-06-04 07:28] LABS: Alanine Aminotransferase* 191 U/L (4-50); Alkaline Phosphatase* 606 U/L (40-150); Aspartate Amino Transferase* 104 U/L (12-35); Bilirubin Direct* 0.8 mg/dL (0.0-0.5); Bilirubin Total* 1.2 mg/dL (0.1-1.5); Total Protein* 7.5 g/dL (6.0-8.3)
[2024-06-04 08:04] VITALS: BP 92/52; PULSE 40; RESP 18; TEMP 36.4; O2SAT 96
--- NOTE | 2024-06-04 08:11 | P.IMPN_ITS ---
Progress Note: A&P Assessment and plan (1) LFT elevation: Problem details: - marked elevation (notably normal in February 2024) - acute with elevated INR. Negative Monospot, B CX NGTD - pending: Hepatitis panel, stool studies, CMV - 05/29: reassuring MRCP. Reviewed with ID: c/w viral illness. While awaiting lab results: continue Zosyn, add on CMV and COVID, continue to trend LFTs - 05/30: continuing to improve, adding TTE to evaluate R heart - 05/31: Afebrile, but LFTs variably better/worse. ECHO from yesterday similar to one done in February. Cause remains unclear, but suspected to be viral illness. Monoscreen negative, Hepatitis panel negative. Stool studies pending (except Cdiff, which is negative). - 06/01: Afebrile. AST/ALT/bili improving. GGT and Alk Phos increasing. Spoke with Dr. Redd from [facility]. Recommended no ERCP. Suspected cholestasis probably viral, recent antibiotic or herbal supplement vs autoimmune. EBV, CMV, hepatitis panel negative. Ordered HSV and autoimmune labs today. Continue zosyn, recheck LFTs. Unclear what to expect from [facility], Dr. Redd also stated no clear benefit from following this lab. - 06/03: LFTs continue to fluctuate slighly, with slight trend upward today in AST, ALT, AP. HSV, autoimmune labs pending. Family agrees with current plan to monitor and await send out labs. If dramatic increase, or ongoing upward trend, may benefit from another conversation with [facility]. Status: Acute (2) Superficial thrombosis of both lower extremities: Problem details: - Bilateral superficial thrombus in the greater saphenous vein and varicosities on the right extending 0.4 centimeters from the common femoral vein. Superficial thrombus within the left greater saphenous vein and varicosities extending up to the common femoral vein but not involving the common femoral vein. - Suspect related to recent bilateral vein ablation done at [facility] 05/02/24. - Intermediate risk of extension. Continue low dose lovenox for 45 days. Due to abnormal LFTs, will avoid Xarelto. - 06/03: Patient's sister, Amanda, stated that Glenn spoke with Dr. Orellana who did Malik's vein ablation on 05/02 and he compared our US to the one done on 05/13. Amanda tells me he saw no difference. Continue enoxaparin. Avoiding Xarelto/Eliquis due to elevated LFTs. Status: Acute (3) Varicose veins of bilateral lower extremities with other complications: Problem details: - followed by [facility]; last procedure was 05/02/24 (ablation/sclerotherapy) Status: Chronic (4) Colonic mass: Problem details: - vs incomplete distention on clinic imaging 05/28 - will need outpatient colonoscopy; not acutely prepping at this time given illness Status: Acute (5) Normocytic anemia: Problem details: - chronic, baseline Hgb 11-12 - takes thrice weekly slow iron as an outpatient (PCP is Dr. Bailey) - Stable Status: Chronic (6) Hypotension, chronic: Problem details: - typical SBP 90-100 Status: Chronic (7) Trisomy 21, Down syndrome: Problem details: - noted Status: Chronic (8) Congenital subaortic stenosis: Problem details: - Mild, Followed by [facility] q 3 years - ECHO yesterday (05/31) similar to one below, EF 60-65%, LVIOT, peak velocity2.1 m/s, mean gradient 10 mmHg. 02/15/2024 10:59 AM CDT For the complete report, see the Order-Level Documents. Hemodynamics Heart Rate: 45 BPM Blood Pressure: 122 / 57 mmHg ECG: Sinus rhythm, 1st degree A-V block Final Impressions 1. Discrete subaortic ridge positioned 2 cm apical to the aortic valve annulus. Left ventricular outflow tract mean gradient 9 mmHg. Trivial aortic valve regurgitation. 2. Normal left ventricular chamber size with normal wall thickness. Calculated ejection fraction 61%. 3. Normal left ventricular diastolic function. 4. Normal right ventricular chamber size and systolic function. 5. Estimated right ventricular systolic pressure 41 mmHg (right atrial pressure of 5 mmHg). 6. Left ventricular stroke volume index 41 ml/m2. Reduced LV cardiac index (1.98 l/min/m2) due to sinus bradycardia. 7. Compared to the report of 01/28/2021 no significant change has occurred. Side by side comparison of images performed Status: Chronic (9) Hypothyroidism: Problem details: - stable TSH, continue outpatient dose of Levothyroxine Status: Chronic (10) Sinus bradycardia, chronic: Problem details: - 40-50s. HR was 45 on ECHO done at [facility] in February. - HR has remained stable, he is asymptomatic. Status: Chronic Subjective Date Seen: 06/04/24 Interval history: Daily Progress Note - #: CC: 24 HOUR UPDATE: Notable Labs, Micro, Rads, Interventions: His total bilirubin continues to down trend. As well as his direct bilirubin. His AST and ALT have come down to just over 101 191 respectively. His alk-phos is down to 606 but has been as low as 314. His inflammatory markers, at last check, were all down trending. His autoimmune screen for an ALIZA IgG was negative. His HSV screen were negative. His hep panel was negative, COVID negative, mono negative. Blood cultures finalize negative at 5 days. Objective: Vitals: see above Lungs: Clear. Cardiac: S1S2. Disposition/Potential discharge - Today I spent 50minutes seeing the patient, reviewing Expanse and EPIC notes/diagnostics, discussing the care plan with our care time that includes social work, PT/OT, pharmacy, RT, jail and documenting my impressions and plan in the medical record. Prolonged Physician Services [id number] ([facility]) in conjunction with: [id number] (subsequent visit; 50 mins + 15 mins prolonged services = 65 mins total) I then went back for 15 mins to discuss the findings of ..... Alcohol 10039 >30 mins. We went over all the stigmata of alcoholism I see in this patient. I discussed the effects of chronic alcohol on the brain, liver, and heart. I recommended complete abstinence from alcohol and instructed on programs available at discharge from acute care. Smoking/Tobacco 42995 >10 mins. I went over the clinical stigmata of chronic tobacco use on the body. I explained the effect on the vasculature, lungs, heart, skin. I recommended complete abstinence from tobacco products and i nstructed on programs available at discharge from acute care. ACP first 30 mins [id number] I went over options for care during this current hospitalization and explained the difference between palliative care and hospice care. I described the likelihood of returning to previous functioning and what the options are going forward for care. Exam Const: Vital Signs, click to edit/add: Vital Signs - 24 hr 06/03/24 08:30 06/03/24 08:30 06/03/24 08:30 Temperature 97.3 F L Pulse Rate [Pulse Oximeter] 50 L 45 L Respiratory Rate 18 18 Blood Pressure [Ri ght Arm] 95/55 L Pulse Oximetry 97 97 Oxygen Delivery Me thod Room Air 06/03/24 15:00 06/03/24 15:00 06/03/24 15:00 Temperature 97.0 F L Pulse Rate [Pulse Oximeter] 48 L 48 L Respiratory Rate 18 18 Blood Pressure [Ri ght Arm] 107/53 L Pulse Oximetry 97 97 Oxygen Delivery Me thod Room Air 06/03/24 20:10 06/03/24 23:00 06/03/24 23:00 Temperature 97.7 F Pulse Rate [Pulse Oximeter] 42 L Respiratory Rate 18 18 Blood Pressure [Ri ght Arm] 108/52 L Pulse Oximetry 95 95 Oxygen Delivery Me thod Room Air 06/04/24 03:00 06/04/24 08:04 Temperature 97.5 F L Pulse Rate [Pulse Oximeter] 40 L Respiratory Rate 18 18 Blood Pressure [Ri ght Arm] 92/52 L Pulse Oximetry 96 Oxygen Delivery Me thod Room Air Labs Labs: Laboratory Results - last 24 hr 06/01/24 06/04/24 15:57 05:50 WBC 5.14 RBC 3.88 L Hgb 12.0 L Hct 37.6 MCV 97 MCH 31 MCHC 32 RDW Coeff of Lisy 15.9 H Plt Count 255 Neut % (Auto) 63.2 Lymph % (Auto) 18.9 L [place] % (Auto) 10.5 Eos % (Auto) 2.5 Baso % (Auto) 1.2 Neut # (Auto) 3.25 Lymph # (Auto) 1.00 [place] # (Auto) 0.50 Eos # (Auto) 0.13 Baso # (Auto) 0.06 Abs Immat Gran (auto) 0.19 Imm/Tot Granulo (auto) 3.7 Total Bilirubin 1.2 Direct Bilirubin 0.8 H AST 104 H ALT 191 H Alkaline Phosphatase 606 H Total Protein 7.5 Albumin 3.8 Fld AILZA IgG ERWIN None Detected HSV Source Description Plasma HSV I (PCR) Not Detected HSV II (PCR) Not Detected
[2024-06-04] MEDS: ENOXAPARIN 30 MG/0.3ML INJ SUBCUT (09:10)
--- NOTE | 2024-06-04 12:53 | P.DS_ITS ---
DS: Providers Provider Date Seen: 06/04/24 Date of admission: 05/29/24 08:56 Primary care physician: Not a Local Provider Admitting Clinician: Catrachita Florez MD Attending Physician on discharge: [facility] Date of Discharge: 06/04/24 DS: Diagnosis Discharge Diagnosis (1) Transaminitis: Status: Acute Problem details: - marked elevation (notably normal in February 2024) - acute with elevated INR. Negative Monospot, CMV, CDIFF, Autoimmune workup. B CX NGTD -pending stool PCR ([facility] - sent to [place]) - 05/29: reassuring MRCP. Reviewed with ID: c/w viral illness. While awaiting lab results: continue Zosyn, add on CMV and COVID, continue to trend LFTs - 05/30: continuing to improve, adding TTE to evaluate R heart - 05/31: Afebrile, but LFTs variably better/worse. ECHO from yesterday similar to one done in February. Cause remains unclear, but suspected to be viral illness. Monoscreen negative, Hepatitis panel negative. Stool studies pending (except Cdiff, which is negative). - 06/01: Afebrile. AST/ALT/bili improving. GGT and Alk Phos increasing. Spoke with Dr. Redd from [facility]. Recommended no ERCP. Suspected cholestasis probably viral, recent antibiotic or herbal supplement vs autoimmune. EBV, CMV, hepatitis panel negative. HSV, autoimmune Neg. Ordered HSV and autoimmune labs today. - 06/03: LFTs continue to fluctuate slightly, with slight trend upward today in AST, ALT, AP. HSV, autoimmune neg -06/04 - Family agreeable to discharge with outpatient follow-up (2) Colonic mass: Status: Acute Problem details: - vs incomplete distention on clinic imaging 05/28 - will need outpatient colonoscopy; not acutely prepping at this time given illness - discuss with GI regarding utility of f/u imaging vs scope (3) Bright red blood per rectum: Status: Acute Problem details: - noted to have BRBPR x2 on 05/29, likely 2/2 acute illness and elevated INR. Small hemorrhoid on exam 05/29. - Continue to follow --> resolved. Tolerating a normal diet. (4) Normocytic anemia: Status: Chronic Problem details: - chronic, baseline Hgb 11-12 - takes thrice weekly slow iron as an outpatient (PCP is Dr. Bailey) - Stable (5) Hyperbilirubinemia: Status: Acute Problem details: as above (6) Superficial thrombosis of both lower extremities: Status: Acute Problem details: - Bilateral superficial thrombus in the greater saphenous vein and varicosities on the right extending 0.4 centimeters from the common femoral vein. Superficial thrombus within the left greater saphenous vein and varicosities extending up to the common femoral vein but not involving the common femoral vein. - Suspect related to recent bilateral vein ablation done at [facility] 05/02/24. - Intermediate risk of extension. Continue low dose lovenox for 45 days. Due to abnormal LFTs, will avoid Xarelto. - 06/03: Patient's sister, Amanda, stated that Glenn spoke with Dr. Orellana who did Malik's vein ablation on 05/02 and he compared our US to the one done on 05/13. Amanda tells me he saw no difference. Continue enoxaparin. Avoiding Xarelto/Eliquis due to elevated LFTs. (7) Hyponatremia: Status: Acute Problem details: - normalized 05/29 (8) Hypotension, chronic: Status: Chronic Problem details: - typical SBP 90-100 (9) Trisomy 21, Down syndrome: Status: Chronic Problem details: - noted (10) Congenital subaortic stenosis: Status: Chronic Problem details: - Mild, Followed by [facility] q 3 years - ECHO yesterday (05/31) similar to one below, EF 60-65%, LVIOT, peak velocity2.1 m/s, mean gradient 10 mmHg. 02/15/2024 10:59 AM CDT For the complete report, see the Order-Level Documents. Hemodynamics Heart Rate: 45 BPM Blood Pressure: 122 / 57 mmHg ECG: Sinus rhythm, 1st degree A-V block Final Impressions 1. Discrete subaortic ridge positioned 2 cm apical to the aortic valve annulus. Left ventricular outflow tract mean gradient 9 mmHg. Trivial aortic valve regurgitation. 2. Normal left ventricular chamber size with normal wall thickness. Calculated ejection fraction 61%. 3. Normal left ventricular diastolic function. 4. Normal right ventricular chamber size and systolic function. 5. Estimated right ventricular systolic pressure 41 mmHg (right atrial pressure of 5 mmHg). 6. Left ventricular stroke volume index 41 ml/m2. Reduced LV cardiac index (1.98 l/min/m2) due to sinus bradycardia. 7. Compared to the report of 01/28/2021 no significant change has occurred. Side by side comparison of images performed (11) Varicose veins of bilateral lower extremities with other complications: Status: Chronic Problem details: - followed by [facility]; last procedure was 05/02/24 (ablation/sclerotherapy) (12) Sinus bradycardia, chronic: Status: Chronic Problem details: - 40-50s. HR was 45 on ECHO done at [facility] in February. - HR has remained stable, he is asymptomatic. (13) Hypothyroidism: Status: Chronic Problem details: - stable TSH, continue outpatient dose of Levothyroxine DS: Summary Hospital Course Hospital Course: FINAL DIAGNOSIS/FOLLOW UP ISSUES: Transaminitis: No specific etiology identified. Team generally thought this was a viral process. Clinically improved. Labs, mostly, down trended. Specifically Monospot, acute hepatitis panel, CMV, autoimmune screen, HSV, C diff negative. He did have a couple of episodes of bright red blood per rectum. This was self limited and not overly symptomatic. Likely due to hemorrhoid. Echo was negative for any acute changes from his baseline. CT finding: On initial presentation there was a concern for a focal thickening in the ascending colon. He did not have a colonoscopy as an inpatient secondary to the acute liver findings. This should be discussed as an outpatient to either directly visualize the a colonoscopy for repeat imaging. Colorectal cancer screening: This was discussed as he has a significant family history but has never been screened. This conversation should continue as an outpatient with his PCP. BRIEF HOSPITAL COURSE: Patient was admitted for 8 days. Synopsis of acute inpatient issues are outlined above. Chronic medical conditions with notable findings outlined above. Malik did exceedingly well. Given his limitations secondary to his trisomy 21 he adapted to a week in the hospital quite well. Symptomatically he improved within the 1st 3 days. He defervesced by hospital day 2, remaining afebrile. He had a few small episodes of bright red blood per rectum. These were asymptomatic and thought to be related to the start of his colon prep and a external hemorrhoid. We discussed the case with hepatology in [facility] and Infectious Disease thru [facility]. He was treated with IV antibiotics to cover for colitis given the CT finding of focal thickening. However the prevailing thought was this was likely a viral illness with transaminitis. We did consider autoimmune hepatitis for which the screen was negative. This is also possibly a drug toxicity, without specific etiology. Ultimately, most of his lab values had down trended by discharge. Troy was up independently walking the halls with his family. He was tolerating a normal diet. He was having normal bowel movements. He was afebri le. DISCHARGE MEDICATIONS: See Reconciled list - SIGNIFICANT CHANGES: No changes Specific instructions to the patient and follow-up are outlined below. REVIEW OF SYSTEMS No new chest pain or dyspnea Pain controlled No voiding difficulties Tolerating diet challenge PHYSICAL EXAM: CONSTITUTIONAL: Happy, limited insight. No acute distress. VITAL SIGNS: see record. HEENT: Normocephalic, atraumatic. PERRL, EOMI, conjunctivae pink, no scleral icterus. Ears and nose externally normal. Pharynx normal. NECK: No JVD. No carotid bruit, no thyromegaly, no adenopathy. CHEST: Clear to auscultation bilaterally. HEART: S1 and S2 normal. Edema ABDOMEN: Soft, nontender. Normal bowel sounds. MUSCULOSKELETAL: No gross joint deformity or swelling. NEURO: Cranial nerves intact. Grossly intact. No asymmetric findings. SKIN: No rashes, petechiae, concerning changes PSYCHIATRIC: Mood euthymic. DISPOSITION: Home with family Time spent on discharge 37 minutes. Status at Discharge Functional status at discharge: independent ambulation Overall status at discharge: patient is back to baseline Time Spent with Patient Time attestation: Total time spent providing and/or coordinating discharge services: Time spent: Greater than 30 minutes Exam Const: Vital Signs, click to edit/add: Vital Signs - 24 hr 06/03/24 15:00 06/03/24 15:00 06/03/24 15:00 Temperature 97.0 F L Pulse Rate [Pulse Oximeter] 48 L 48 L Respiratory Rate 18 18 Blood Pressure [Ri ght Arm] 107/53 L Pulse Oximetry 97 97 Oxygen Delivery Me thod Room Air 06/03/24 20:10 06/03/24 23:00 06/03/24 23:00 Temperature 97.7 F Pulse Rate [Pulse Oximeter] 42 L Respiratory Rate 18 18 Blood Pressure [Ri ght Arm] 108/52 L Pulse Oximetry 95 95 Oxygen Delivery Me thod Room Air 06/04/24 03:00 06/04/24 08:04 Temperature 97.5 F L Pulse Rate [Pulse Oximeter] 40 L Respiratory Rate 18 18 Blood Pressure [Ri ght Arm] 92/52 L Pulse Oximetry 96 Oxygen Delivery Me thod Room Air DS: Data Data Completed and Pending Labs on day of discharge: Labs from last 24 hours 06/04/24 06/01/24 05:50 15:57 WBC 5.14 RBC 3.88 L Hgb 12.0 L Hct 37.6 MCV 97 MCH 31 MCHC 32 RDW Coeff of Lisy 15.9 H Plt Count 255 Neut % (Auto) 63.2 Lymph % (Auto) 18.9 L Dent % (Auto) 10.5 Eos % (Auto) 2.5 Baso % (Auto) 1.2 Neut # (Auto) 3.25 Lymph # (Auto) 1.00 Dent # (Auto) 0.50 Eos # (Auto) 0.13 Baso # (Auto) 0.06 Abs Immat Gran (auto) 0.19 Imm/Tot Granulo (auto) 3.7 Total Bilirubin 1.2 Direct Bilirubin 0.8 H AST 104 H ALT 191 H Alkaline Phosphatase 606 H Total Protein 7.5 Albumin 3.8 Fld ALIZA IgG ERWIN None Detected HSV Source Description Plasma HSV I (PCR) Not Detected HSV II (PCR) Not Detected Discharge Plan Discharge Disposition: Home w/ Parent or Adult Date of Admission: 05/29/24 08:56 Attending Provider on Discharge: Sandra Sanon Primary Care Provider: Provider,Not a Local Anticipated Discharge Date/Time: 06/04/24 11:21 Discharge Medications: Continued levothyroxine 150 mcg tablet 150 mcg PO DAILY ferrous sulfate [Enma-Time] 325 mg (65 mg iron) tablet 325 mg PO DAILY Discharge Orders: Discharge Order (Routine); Ordered 06/04/24 Ordered By: Sandra Sanon Patient Education: Liver Profile (GEN), Abdominal Pain (DC) Additional Instructions: Can return to work when patient and family feels he is up to I'd like Dr. Bailey check his labs in the next week A follow-up with [facility] (both vascular medicine and gastroenterology) should be arranged. Activity Level: Activity as Tolerated Discharge Diet: Regular Follow Up Appointments: Patti Redd MD [Other] (Next available with department; Dr. Redd was the consulting GI physician during this patient's stay Dr. Patti Redd from [facility] [phone]) Esteban Crespo MD [Other] - 06/09/24 11:30 am (The appointment is with Dr. Chantell Rojas Department of Vascular Medicine in [place], [place] [address] [place] [id number] Cherie Orellana M.D. [address] [place] [phone] ) Sabas Bailey MD [Staff Physician] - 06/12/24 2:05 pm ( [facility] for follow-up, and labs needed.) Forms: [employer] Info Instructions
--- NOTE | 2024-06-04 14:14 | PC.NURSE ---
Shift Summary: patient pleasant and cooperative. Up independently, frequently walking in halls with family. Baseline vitals, denies lightheadedness or SOB. Denies pain. Tolerating regular diet. Patient discharged @ 1408. No IV present at time of discharge.
== END 2024-06-04 14:08 | disposition home or self-care (01) | DRG 947 ==
PROVIDERS: Family Medicine; Admitting Provider Family Medicine; Visit Provider Family Medicine
DX: R74.01 Elevation of levels of liver transaminase levels (principal); Q24.4 Congenital subaortic stenosis; E87.1 Hypo-osmolality and hyponatremia; K62.5 Hemorrhage of anus and rectum; I82.813 Embolism and thrombosis of superficial veins of lower extremities, bilateral; R10.9 Unspecified abdominal pain; Q90.9 Down syndrome, unspecified; E03.9 Hypothyroidism, unspecified; E80.6 Other disorders of bilirubin metabolism; I95.89 Other hypotension; I83.893 Varicose veins of bilateral lower extremities with other complications; D64.9 Anemia, unspecified; R00.1 Bradycardia, unspecified; I49.8 Other specified cardiac arrhythmias; K64.9 Unspecified hemorrhoids; K63.89 Other specified diseases of intestine
CPT/HCPCS: 36415; 74181; 80048; 80053; 80061; 80069; 80074; 80076; 80143; 82330; 82728; 82803; 82977; 83036; 83540; 83550; 83605; 83690; 83735; 84145; 84443; 85025; 85045; 85610; 86015; 86038; 86140; 86308; 86376; 86381; 86645; 87040; 87426; 87493; 87505; 87529; 93005; 93306; 93970; A9270; G0378; G0379; J0613; J1650; J2543; J7120; Q9957

== ENCOUNTER 2024-06-10 19:37 | Emergency (ER) | payer MEDICARE, BC, SELFPAY ==
[2024-06-10 19:50] VITALS: BP 127/70; PULSE 79; RESP 16; TEMP 38.3; O2SAT 96
--- NOTE | 2024-06-10 20:03 | ED_ITS ---
HPI - General Adult General Chief complaint: Nausea/Vomiting Stated complaint: Fever, abdominal pain Time Seen by Provider: 06/10/24 20:01 History of Present Illness HPI narrative: pt discharge last Sunday from [facility]. Today, after eating began feeling sick. Pt ate waffle fries, chicken strips and ice cream. No vomiting not diarrhea. Pt complaining of nausea. 53-year-old man presenting to the emergency department with concern of nausea and apparent abdominal pain. The discharge from this facility 6 days ago with diagnosis of transaminitis thought to be viral and reassuring MRCP and incidental finding of possible colonic mass or wall thickening with recommendations for outpatient colonoscopy. Also with superficial thrombo phlebitis on the right lower leg. Underlying history also of Down's. Had been doing well since discharge. Had a big day of activities and [place] [employer] [place] began to not feel well. He had had favored meal of while full fries chicken strips in ice cream. Began to have pain again as he had complained of prior with some pain in the right side. Has been nauseated but not able to vomit. Was noted at this onset to be developing a fever. Has had smaller bowel movements last couple of days including today. Passing gas today otherwise has been belching. Related Data Home Medications ?Medication ?Instructions ?Recorded ?Confirmed levothyroxine 150 mcg tablet 150 mcg PO DAILY 02/08/23 05/28/24 ferrous sulfate 325 mg (65 mg 325 mg PO DAILY 05/28/24 05/28/24 iron) tablet (Enma-Time) Allergies Allergy/AdvReac Type Severity Reaction Status Date / Time No Known Drug Allergies Allergy Verified 05/26/24 12:00 Review of Systems Status of ROS: Reports: 6 or more systems reviewed and unremarkable except as noted in History and below [facility] Medical History Congenital subaortic stenosis ?Q24.4 - Congenital subaortic stenosis (ICD-10) Varicose veins of bilateral lower extremities with other complications ?I83.893 - Varicose veins of bilateral lower extremities with other complications (ICD-10) Trisomy 21, Down syndrome ?Q90.9 - Down syndrome, unspecified (ICD-10) Hypothyroidism ?E03.9 - Hypothyroidism, unspecified (ICD-10) Primary osteoarthritis of right knee ?M17.11 - Unilateral primary osteoarthritis, right knee (ICD-10) Colonic mass ?K63.89 - Other specified diseases of intestine (ICD-10) Surgical History Status post sclerotherapy of varicose veins ?Z98.890 - Other specified postprocedural states (ICD-10) ?Z86.79 - Personal history of other diseases of the circulatory system (ICD- 10) Status post laser ablation of incompetent vein ?Z98.890 - Other specified postprocedural states (ICD-10) History of repair of pyloric stenosis ?Z98.890 - Other specified postprocedural states (ICD-10) Hx of cholecystectomy ?Z90.49 - Acquired absence of other specified parts of digestive tract (ICD- 10) Family History Mother Colon cancer Sister Osteoarthritis Social History What is your current living situation?: I presently have a place to live Problems where you live: no known problems Problems where you live details: na In the past 12 months, utilities in danger of being shut off: no In past 12 months, lack of transportation kept you from medical appts, meetings, work, or getting things needed for daily living: no In the past 12 mos, have been you worried that your food would run out before you had money to buy more?: never true In the past 12 mos, the food you bought just didn't last and you didn't have money to buy more?: never true Highest level of school completed/degree received: high school graduate Smoking Status: Never smoker How often do you have a drink containing alcohol: never How often do you have six or more drinks on one occasion: Never AUDIT-C Alcohol total score: 0 Non-prescribed substance use: denies use Caffeine: Yes How often does anyone, including family, friends and others, physically hurt you : never How often does anyone, including family, friends and others, insult or talk down to you: never How often does anyone, including family, friends and others, threaten you with harm: never How often does anyone, including family, friends and others, scream or curse at you: never service: No Exam Narrative: Exam Narrative: Arrives moaning in apparent discomfort. Alerts and participates in conversation. Cheeks are little flushed. Lungs appear to be clear. Heart with 2/6 systolic murmur. Regular rate and rhythm. Abdomen is full soft and difficult to reproduce pain but indicates right mid upper abdomen. No peritoneal signs. Reported with rather high pain tolerance. There is staining around his lips consistent with chocolate ice cream. Oropharynx otherwise seems sticky. Skin is rather warm and dry. Later exam after he had been complaining of discomfort apparently around the right foot and ankle, Mom further removes shoe and sock and more evidence of mild edema and broad calor with mild erythema. In area and below of superficial thrombus. And this is contrary to the left leg Const: Vital Signs, click to edit/add: Vital Signs - 24 hr 06/10/24 19:50 06/10/24 21:49 06/10/24 22:41 Temperature 100.9 F H 101.1 F H 101.1 F H Pulse Rate [Left P ulse Oximeter] 79 77 Respiratory Rate 16 20 Blood Pressure [Le ft Forearm] 97/49 L Blood Pressure [Ri ght Upper Arm] 127/70 Pulse Oximetry 96 93 Oxygen Delivery Me thod Room Air Room Air Documenting provider has reviewed patient's vital signs: yes Course Vital Signs Vital signs: Initial Vital Signs Temperature 100.9 F H 06/10/24 19:50 Temperature Source Temporal Artery Scan 06/10/24 19:50 Pulse Rate 79 06/10/24 19:50 Pulse Rhythm Regular 06/10/24 19:50 Respiratory Rate 16 06/10/24 19:50 Blood Pressure 127/70 06/10/24 19:50 Blood Pressure Mean 89 06/10/24 19:50 Blood Pressure Position Sitting 06/10/24 19:50 Pulse Oximetry 96 06/10/24 19:50 Oxygen Delivery Method Room Air 06/10/24 19:50 Vital Signs Temperature 100.9 F H 06/10/24 19:50 Pulse Rate 79 06/10/24 19:50 Respiratory Rate 16 06/10/24 19:50 Blood Pressure 127/70 06/10/24 19:50 Pulse Oximetry 96 06/10/24 19:50 Oxygen Delivery Method Room Air 06/10/24 19:50 Temperature 101.1 F H 06/10/24 22:41 Pulse Rate 77 06/10/24 21:49 Respiratory Rate 20 06/10/24 21:49 Blood Pressure 97/49 L 06/10/24 21:49 Pulse Oximetry 93 06/10/24 21:49 Oxygen Delivery Method Room Air 06/10/24 21:49 Medications Administered Medications: Discontinued Medications Generic Name Dose Route Start Last Admin Trade Name Hiren PRN Reason Stop Dose Admin Sodium Chloride 1,000 mls @ 1,000 mls/hr 06/10/24 20:52 06/10/24 22:45 0.9 % Sodium Chloride 1000 Ml IV 06/10/24 21:51 0 mls/hr .Q1H ONE Infusion Ketorolac Tromethamine 15 mg 06/10/24 22:24 06/10/24 22:41 Ketorolac 15 Mg/Ml Inj IVP 06/10/24 22:25 15 mg ONCE ONE Administration Ondansetron HCl 4 mg 06/10/24 20:11 06/10/24 21:21 Ondansetron 2 Mg/Ml Inj IVP 06/10/24 20:12 4 mg ONCE ONE Administration Medical Decision Making MDM Narrative Medical decision making narrative: Differential includes bowel obstruction, constipation and related bowel pain/intestinal colic, gastritis, viral illness NOS, low-lying pneumonia, hepa titis, urinary tract infection Will check broad labs and compare with recent hospitalization. Barbara. Would do basic abdominal x-ray looking for evidence of obstruction or to gauge fecal content. White count is notably high with neutrophilic predominance. Transaminases continue to improve. COVID negative Did ultimately vomit. Appears to feel better after this. Abdominal pain has resolved. Abdominal x-ray noted by me to have extensive colonic stool Radiology over-read below TECHNIQUE: Upright and supine radiographic view(s) of the abdomen. FINDINGS: Surgical clips are noted in the right upper abdominal quadrant in the left lower abdominal quadrant. No focal abnormally dilated loops of bowel are detected. There is a large colonic stool volume. There are osseous degenerative changes. There is mild dextrocurvature of the lumbar spine. The visualized lung bases are clear. No pneumoperitoneum is identified. IMPRESSION: No focal abnormally dilated loops of bowel are detected. Large colonic stool volume. Temperature though increased to 101. Did ultimately give normal saline bolus in ketorolac. With reassessment later it appears there may be a cellulitis possibly secondary to superficial thrombophlebitis. I am not sure though that this is the source of the fever necessarily. We did discuss potentially doing repeat imaging of the abdomen a contrasted CT but Malik feeling better now understandably would like to go home Think it would be prudent to initiate antibiotics with what might be an evolving cellulitis See patient discharge plan for further discussion Medical Records Medical records reviewed: Yes I reviewed the patient's medical records Lab Data Lab results reviewed: Yes I reviewed the patient's lab results Labs: Lab Results 06/10/24 06/10/24 06/10/24 Range/Units 20:11 20:17 20:26 WBC (4.50-11.00) K/uL RBC (4.30-5.90) m/uL Hgb (13.5-17.5) gm/dL Hct (37.0-53.0) % MCV (80-100) fL MCH (26-34) pg MCHC (32-36) gm/dL RDW Coeff of Lisy (11.5-15.5) % Plt Count (140-440) K/uL Neut % (Auto) (42.0-72.0) % Lymph % (Auto) (20-44) % [place] % (Auto) (0.0-11.0) % Eos % (Auto) (0.0-7.0) % Baso % (Auto) (0.0-3.0) % Neut # (Auto) (1.7-7.0) K/uL Lymph # (Auto) (0.90-2.90) K/uL [place] # (Auto) (0.00-0.90) K/UL Eos # (Auto) (0.00-0.50) K/uL Baso # (Auto) (0.00-0.30) K/uL Abs Immat Gran (auto) (0.00-0.30) K/uL Imm/Tot Granulo (auto) % Sodium (135-149) mmol/L Potassium (3.6-5.1) mmol/L Chloride (96-114) mmol/L Carbon Dioxide (20-32) mmol/L Anion Gap (7-15) mEq/L BUN (7-30) mg/dL Creatinine (0.5-1.5) mg/dL Estimated GFR ml/min Glucose (60-115) mg/dL Calcium (8.4-10.6) mg/dL Total Bilirubin 0.9 (0.1-1.5) mg/dL Direct Bilirubin 0.5 (0.0-0.5) mg/dL AST 63 H (12-35) U/L ALT 115 H (4-50) U/L Alkaline Phosphatase 346 H (40-150) U/L C-Reactive Protein (0.5-1.0) mg/dL Total Protein 8.2 (6.0-8.3) g/dL Albumin 4.4 (3.3-5.0) g/dL Lipase (23-300) U/L Urine Color Yellow (Yellow) Urine Appearance Clear (Clear) Urine pH 5.5 (5.0-8.5) Ur Specific [place] 1.020 (1.000-1.030) Urine Protein Negative (Negative) Urine Glucose (UA) Negative (Negative) Urine Ketones Negative (Negative) Urine Blood Negative (Negative) Urine Nitrite Negative (Negative) Urine Bilirubin Negative (Negative) Urine Urobilinogen 0.2 (0.2-1.0) Ur Leukocyte Esterase Negative (Negative) Urine RBC 0-2 (0-2) Urine WBC 0-2 (0-5) Ur Squamous Epith Cells Few (None-Few) Urine Bacteria None (None) SARS-CoV-2 (PCR) Negative SARS-CoV-2 (Negative) Influenza Type A (PCR) Negative PCR FLU A (Negative) Influenza Type B (PCR) Negative PCR FLU B (Negative) Lab Acknowledgement 06/10/24 06/10/24 Range/Units 21:07 22:37 WBC 18.39 H (4.50-11.00) K/uL RBC 4.28 L (4.30-5.90) m/uL Hgb 13.1 L (13.5-17.5) gm/dL Hct 41.4 (37.0-53.0) % MCV 97 (80-100) fL MCH 31 (26-34) pg MCHC 32 (32-36) gm/dL RDW Coeff of Lisy 15.5 (11.5-15.5) % Plt Count 310 (140-440) K/uL Neut % (Auto) 94.3 H (42.0-72.0) % Lymph % (Auto) 2.1 L (20-44) % [place] % (Auto) 2.9 (0.0-11.0) % Eos % (Auto) 0.1 (0.0-7.0) % Baso % (Auto) 0.3 (0.0-3.0) % Neut # (Auto) 17.30 H (1.7-7.0) K/uL Lymph # (Auto) 0.40 L (0.90-2.90) K/uL [place] # (Auto) 0.50 (0.00-0.90) K/UL Eos # (Auto) 0.00 (0.00-0.50) K/uL Baso # (Auto) 0.10 (0.00-0.30) K/uL Abs Immat Gran (auto) 0.10 (0.00-0.30) K/uL Imm/Tot Granulo (auto) 0.3 % Sodium 136 (135-149) mmol/L Potassium 4.3 (3.6-5.1) mmol/L Chloride 102 (96-114) mmol/L Carbon Dioxide 26 (20-32) mmol/L Anion Gap 8 (7-15) mEq/L BUN 25 (7-30) mg/dL Creatinine 0.9 (0.5-1.5) mg/dL Estimated GFR 103 ml/min Glucose 115 (60-115) mg/dL Calcium 9.1 (8.4-10.6) mg/dL Total Bilirubin (0.1-1.5) mg/dL Direct Bilirubin (0.0-0.5) mg/dL AST (12-35) U/L ALT (4-50) U/L Alkaline Phosphatase (40-150) U/L C-Reactive Protein 2.5 H (0.5-1.0) mg/dL Total Protein (6.0-8.3) g/dL Albumin (3.3-5.0) g/dL Lipase 265 (23-300) U/L Urine Color (Yellow) Urine Appearance (Clear) Urine pH (5.0-8.5) Ur Specific [place] (1.000-1.030) Urine Protein (Negative) Urine Glucose (UA) (Negative) Urine Ketones (Negative) Urine Blood (Negative) Urine Nitrite (Negative) Urine Bilirubin (Negative) Urine Urobilinogen (0.2-1.0) Ur Leukocyte Esterase (Negative) Urine RBC (0-2) Urine WBC (0-5) Ur Squamous Epith Cells (None-Few) Urine Bacteria (None) SARS-CoV-2 (PCR) (Negative) Influenza Type A (PCR) (Negative) Influenza Type B (PCR) (Negative) Lab Acknowledgement Test Added Discharge Plan Discharge Clinical Impression: Cellulitis, Vomiting, Constipation Patient Disposition: Home w/ Parent or Adult Condition: Stable Additional Instructions: Try to focus on hydration. When at rest be sure to get that right leg elevated. I would also consider wrapping it with those [place] wraps especially while resting. Continue to monitor for fever. I would gave yourself 24 hours of intermittent fever before being re-evaluated, unless feeling markedly worse. Can take ibuprofen or acetaminophen. Blood culture is pending. Will start Keflex as prescribed from [facility]. Zofran as well for nausea. Prescriptions: No Action levothyroxine 150 mcg tablet 150 mcg PO DAILY ferrous sulfate [Enma-Time] 325 mg (65 mg iron) tablet 325 mg PO DAILY Follow Up/Referrals: Provider,Not a Local [Primary Care Provider] - Stand Alone Forms: [employer] Info Instructions
--- NOTE | 2024-06-10 20:11 | CRLHL7_ITS ---
For Patients: As a result of the Century Cures Act, medical imaging exams and procedure reports are released immediately into your electronic medical record. You may view this report before your referring provider. If you have questions, please contact your health care provider. INDICATION: Right-sided abdominal pain, nausea, fever COMPARISON: 05/29/2024 MRI abdomen TECHNIQUE: Upright and supine radiographic view(s) of the abdomen. FINDINGS: Surgical clips are noted in the right upper abdominal quadrant in the left lower abdominal quadrant. No focal abnormally dilated loops of bowel are detected. There is a large colonic stool volume. There are osseous degenerative changes. There is mild dextrocurvature of the lumbar spine. The visualized lung bases are clear. No pneumoperitoneum is identified. IMPRESSION: No focal abnormally dilated loops of bowel are detected. Large colonic stool volume. Dictated by Lauri Miranda MD @ 06/10/2024 8:55:06 PM (Electronically Signed)
[2024-06-10 20:49] LABS: Appearance Urine Clear (Clear); Bilirubin Urine Negative (Negative); Blood Urine Negative (Negative); Color Urine Yellow (Yellow); Glucose Urine Negative (Negative); Ketones Urine Negative (Negative); Leukocyte Esterase Urine Negative (Negative); Nitrite Urine Negative (Negative); Protein Urine Negative (Negative); Urobilinogen Urine 0.2 (0.2-1.0); pH Urine 5.5 (5.0-8.5)
[2024-06-10 21:11] LABS: RBC Urine 0-2 (0-2); Squamous Epithelial Cell Urine Few (None-Few); WBC Urine 0-2 (0-5)
[2024-06-10 21:16] LABS: Basophils Percent Auto 0.3 % (0.0-3.0); Eosinophils Percent Auto 0.1 % (0.0-7.0); Hematocrit 41.4 % (37.0-53.0); Hemoglobin* 13.1 gm/dL (13.5-17.5); Immature Granulocytes Pct Auto 0.3 %; Lymphocytes Percent Auto 2.1 % (20-44); Mean Corpuscular HGB Conc 32 gm/dL (32-36); Mean Corpuscular Hemoglobin 31 pg (26-34); Mean Corpuscular Volume 97 fL (80-100); Monocytes Percent Auto 2.9 % (0.0-11.0); Neutrophils Percent Auto 94.3 % (42.0-72.0); Platelet Count* 310 K/uL (140-440); RDW Coefficient of Variation % 15.5 % (11.5-15.5); Red Blood Count 4.28 m/uL (4.30-5.90); White Blood Count* 18.39 K/uL (4.50-11.00)
[2024-06-10] MEDS: 0.9 % SODIUM CHLORIDE 1000 ml 1,000 ML 500 ML IV (21:21)
[2024-06-10] MEDS: ONDANSETRON 2 MG/ML inj 4 MG IVP (21:21)
[2024-06-10 21:22] LABS: Slide Review Reflex No
[2024-06-10 21:34] LABS: Chloride* 102 mmol/L (96-114)
[2024-06-10 21:34] LABS: Albumin* 4.4 g/dL (3.3-5.0)
[2024-06-10 21:35] LABS: Potassium* 4.3 mmol/L (3.6-5.1); Sodium* 136 mmol/L (135-149)
[2024-06-10 21:36] LABS: Bilirubin Direct* 0.5 mg/dL (0.0-0.5); Bilirubin Total* 0.9 mg/dL (0.1-1.5); Total Protein* 8.2 g/dL (6.0-8.3)
[2024-06-10 21:37] LABS: Alanine Aminotransferase* 115 U/L (4-50); Alkaline Phosphatase* 346 U/L (40-150); Aspartate Amino Transferase* 63 U/L (12-35)
[2024-06-10 21:37] LABS: Creatinine* 0.9 mg/dL (0.5-1.5); Estimated Glomerular Filt Rate 103 ml/min; Lipase* 265 U/L (23-300)
[2024-06-10 21:38] LABS: Anion Gap 8 mEq/L (7-15); Blood Urea Nitrogen* 25 mg/dL (7-30); Calcium* 9.1 mg/dL (8.4-10.6); Carbon Dioxide* 26 mmol/L (20-32); Glucose* 115 mg/dL (60-115)
[2024-06-10 21:44] LABS: PCR FLU A Negative PCR FLU A (Negative); PCR FLU B Negative PCR FLU B (Negative); SARS PCR* Negative SARS-CoV-2 (Negative)
[2024-06-10 21:49] VITALS: BP 97/49; PULSE 77; RESP 20; TEMP 38.4; O2SAT 93
[2024-06-10 22:41] VITALS: TEMP 38.4
[2024-06-10] MEDS: KETOROLAC 15 MG/ML inj IVP (22:41)
[2024-06-10 23:24] LABS: C Reactive Protein* 2.5 mg/dL (0.5-1.0)
== END 2024-06-10 23:45 | disposition home or self-care (01) ==
PROVIDERS: Emergency Provider Family Medicine
DX: K59.00 Constipation, unspecified (principal); L03.115 Cellulitis of right lower limb
CPT/HCPCS: 36415; 74019; 80048; 80076; 81001; 83690; 85025; 86140; 87040; 87631; 96374; 96375; 99284; J1885; J2405; J7030

== ENCOUNTER 2024-07-29 15:00 | Outpatient (RCR) | payer MEDICARE, BC, MEDICAID, SELFPAY | END 2024-07-30 16:56 | disposition home or self-care (01) | PROVIDERS: Visit Provider Family Medicine | DX: R26.81 Unsteadiness on feet (principal); Z51.89 Encounter for other specified aftercare | CPT/HCPCS: 97112; 97161 ==

== ENCOUNTER 2024-08-15 12:39 | Outpatient (CLI) | payer MEDICARE, BC, MEDICAID, SELFPAY ==
--- NOTE | 2024-08-15 14:27 | W.ANESCHARGE ---
Anesthesia Charges Start Date/Time Anesthesia Start Date: 08/15/24 Anesthesia Start Time: 13:40 Stop Date/Time Anesthesia Stop Date: 08/15/24 Anesthesia Stop Time: 14:20
--- NOTE | 2024-08-15 14:39 | W.ANESCHARGE ---
Anesthesia Charges Start Date/Time Anesthesia Start Date: 08/15/24 Anesthesia Start Time: 13:40 Stop Date/Time Anesthesia Stop Date: 08/15/24 Anesthesia Stop Time: 14:20
== END 2024-08-15 12:40 | disposition home or self-care (01) ==
PROVIDERS: PCP Family Medicine; Visit Provider Internal Medicine Gastroenterology
DX: Z12.11 Encounter for screening for malignant neoplasm of colon (principal); Z80.0 Family history of malignant neoplasm of digestive organs; D50.9 Iron deficiency anemia, unspecified; K31.89 Other diseases of stomach and duodenum; K57.10 Diverticulosis of small intestine without perforation or abscess without bleeding
CPT/HCPCS: 00813; 43239; 45378; 88305; J2704; J3490